=== PATIENT | female | born 1960 | race Caucasian/White ===

== ENCOUNTER → 2016-07-31 | Outpatient (CLI) | payer BC | END | disposition home or self-care (01) | LOC: C.PAPS 15:10 | PROVIDERS: ATTEND Obstetrics & Gynecology | DX: R87.612 Low grade squamous intraepithelial lesion on cytologic smear of cervix (LGSIL) (principal) ==

== ENCOUNTER → 2016-10-07 | Outpatient (CLI) | payer BC | END | disposition home or self-care (01) | LOC: C.PAPS 08:41 | PROVIDERS: ATTEND Obstetrics & Gynecology | DX: R87.612 Low grade squamous intraepithelial lesion on cytologic smear of cervix (LGSIL) (principal) ==

== ENCOUNTER → 2016-12-16 | Outpatient (CLI) | payer BC | END | disposition home or self-care (01) | LOC: C.PAPS 14:56 | PROVIDERS: ATTEND Obstetrics & Gynecology | DX: Z01.419 Encounter for gynecological examination (general) (routine) without abnormal findings (principal) ==

== ENCOUNTER → 2017-08-13 | Outpatient (CLI) | payer BC | END | disposition home or self-care (01) | LOC: C.PAPS 14:42 | PROVIDERS: ATTEND Obstetrics & Gynecology | DX: Z01.419 Encounter for gynecological examination (general) (routine) without abnormal findings (principal) ==

== ENCOUNTER 2023-10-24 21:28 | Observation (INO) ==
[2023-10-24 22:37] LABS: Basophils # (auto) 0.02 K/uL (0.00-0.20); Basophils % (auto) 0.2 %; Eosinophils # (auto) 0.06 K/uL (0.00-0.50); Eosinophils % (auto) 0.7 %; Hematocrit (blood only) 34.5 % (37.0-47.0); Hemoglobin 11.7 g/dl (12.0-16.0); Immature Granulocytes # (auto) 0.03 K/uL (0.01-0.20); Immature Granulocytes % (auto) 0.4 %; Lymphocytes # (auto) 1.33 K/uL (1.20-3.40); Lymphocytes % (auto) 16.2 %; Mean Corpuscular Hemoglobin 30.5 pg (25.0-34.0); Mean Corpuscular Hgb Conc 33.9 g/dL (32.0-36.0); Mean Corpuscular Volume 89.8 fL (80.0-100.0); Mean Platelet Volume 9.5 fL (9.4-12.4); Monocytes # (auto) 0.78 K/uL (0.11-0.59); Monocytes % (auto) 9.5 %; Neutrophils # (auto) 5.98 K/uL (1.40-6.50); Platelet Count 182 K/uL (130-400); RDW Coefficient of Variation 13.2 % (11.5-14.5); RDW Standard Deviation 43.8 fL (36.4-46.3); Red Blood Count 3.84 M/uL (4.20-5.40)
[2023-10-24 22:46] LABS: Alanine Aminotransferase 31 U/L (7-52); Albumin Globulin Ratio 1.4 (0.9-2); Albumin Level 3.7 gm/dl (3.4-5.0); Alkaline Phosphatase 52 U/L (34-104); Anion Gap 5 (3-11); Aspartate Aminotransferase 32 U/L (13-39); BUN Creatinine Ratio 14.9 (10-20); Bilirubin,Total 0.4 mg/dl (0.2-1.0); Blood Urea Nitrogen 7 mg/dl (6-23); Calcium 8.4 mg/dl (8.6-10.3); Carbon Dioxide 26 mmol/L (21-32); Chloride 100 mmol/L (98-107); Est GFR (African American) 122.7 ml/min; Est GFR (Non-African American) 105.9 ml/min; Globulin 2.7 gm/dl (2.5-4.0); Glucose 134 mg/dl (70-99(Fasting)); Potassium 3.9 mmol/L (3.5-5.1); Sodium 131 mmol/L (136-145); Total Protein 6.4 gm/dl (6.0-8.3)
[2023-10-24 22:54] LABS: D Dimer 1710 ug/L FEU (0-500)
[2023-10-24] MEDS: OPTIRAY 320 125ml IV ONE (23:13)
[2023-10-24 23:23] LABS: Troponin I High Sensitivity 4.3 pg/ml (0-14)
--- NOTE | 2023-10-24 23:27 | Emergency Department Note ---
Impression & Plan Acute dyspnea, Acute hypoxemic respiratory failure, Pleural effusion on right, Aspiration pneumonia ED Provider Note HISTORY OF PRESENT ILLNESS: Patient is a 62-year-old female presenting with shortness of breath. Patient reports that after waking up at 830 this morning she has had progressively worsening shortness of breath throughout the day today. She reports she feels like she cannot catch her breath. Patient just had a tummy tuck procedure performed at [facility] yesterday with a plastic surgeon. She states that as the day has progressed, she feels like she cannot catch her breath. Denies any chest pain or lightheadedness. Denies any DVT or PE history. Denies any anticoagulation use. Denies any nausea or vomiting. Denies any fevers. ROS: as above PHYSICAL EXAM: Constitutional: Patient appears in no acute distress. HENT: Head: Normocephalic and atraumatic. Eyes: EOMI, PERRL Mouth/Throat: Mucous membranes moist. Neck: Trachea midline. Neck supple. Cardiovascular: RRR, No murmurs, rubs or gallops. Intact distal pulses. Pulmonary/Chest: Patient is conversationally dyspneic. Breath sounds clear and equal bilaterally. Abdominal: Abdomen soft, no tenderness, rebound or guarding. JULIANN drains in place draining serosanguineous fluid. Musculoskeletal: No edema, tenderness or deformity noted. Skin: Warm and dry. No rash, erythema, pallor or cyanosis Psychiatric: Appropriate mood and affect for situation. Neurological: Alert and keenly responsive. CN II-XII grossly intact, moving all extremities equally and fully. MDM: - Vitals signs showed hypoxia. Patient placed on 2L NC with improvement in saturations. - History obtained via patient. History as above. - Chronic conditions affecting care: HTN; HLD - Differential diagnoses include, but are not limited to: Congestive heart failure; acute coronary syndrome; COPD/asthma exacerbation; pulmonary edema; pulmonary embolism; pneumonia; pneumothorax; viral syndrome - Order placed for continuous cardiac monitoring. At this time, monitor showed rate of 84 bpm with normal sinus rhythm, per my interpretation. - External medical records reviewed. - EKG interpreted by myself showed normal sinus rhythm. Rate 85 bpm. QT 354. No acute ischemic changes. - Laboratory workup interpreted by myself showed normal WBC; slight hyponatremia (Na 131); normal creatinine; elevated dimer (1710); normal BNP; normal troponin - CXR showed right effusion, per my interpretation. - Patient given 1g IV tylenol for headache in ER. - Given elevated dimer, CT PE obtained. CT PE showed dependent airspace opacities in right upper lobe, lingula and both lower lobes. No PE. Small bilateral pleural effusions - However, per my interpretation of the CT, it looks concerning for a right- sided aspiration pneumonia. Given patient's new oxygen requirement, will treat with IV zosyn. - Patient was transitioned from nasal cannula to high-flow nasal cannula for work of breathing. - Discussion was had with case mgr about patient's case and need for admission - Hospitalist consulted for admission - Patient admitted to [facility] for further evaluation and management. ASSESSMENT AND PLAN: Diagnosis: acute dyspnea; acute hypoxic respiratory failure; right-sided pleural effusion; aspiration pneumonia Plan: Admit Past Med/Surg History Problem List (Updated 10/25/23 @ 01:24 by Lisa Aponte MD) Aspiration pneumonia (Acute) Pleural effusion on right (Acute) Acute hypoxemic respiratory failure (Acute) Acute dyspnea (Acute) Social History Smoking Status: Never smoker Preferred Language: Greenlandic Feels Safe at Home: Yes Allergies Allergies Allergy/AdvReac Type Severity Reaction Status Date / Time No Known Allergies Allergy Unverified 10/25/23 01:02 Home Meds Home Medications Medication Instructions Recorded Confirmed cephalexin 500 mg capsule 500 mg PO QID 10/25/23 10/25/23 conj estrogen-medroxyprogesterone 1 tab PO DAILY 10/25/23 10/25/23 0.45 mg-1.5 mg tablet (Prempro) docusate sodium 100 mg capsule 100 mg PO HS PRN Constipation 10/25/23 10/25/23 (Col-Rite) duloxetine 60 mg capsule,delayed 60 mg PO DAILY 10/25/23 10/25/23 release meloxicam 7.5 mg tablet 7.5 mg PO .HOLD 10/25/23 10/25/23 oxycodone-acetaminophen 5 mg-325 1 tab PO Q4 PRN Pain 10/25/23 10/25/23 mg tablet pantoprazole 20 mg tablet,delayed 20 mg PO BID 10/25/23 10/25/23 release propranolol 80 mg capsule,24 80 mg PO DAILY 10/25/23 10/25/23 hr,extended release rizatriptan 10 mg disintegrating 10 mg PO DIRECTED PRN Migraine 10/25/23 10/25/23 tablet Headache rosuvastatin 10 mg tablet 10 mg PO DAILY 10/25/23 10/25/23 zolpidem 10 mg tablet 5 - 10 mg PO HS PRN Sleep 10/25/23 10/25/23 Results & Data (ED) Vital Signs Vital Signs - 24 hr 10/24/23 21:37 10/24/23 21:43 10/24/23 21:44 Temperature 36.6 C Temperature Source Oral Pulse Rate 83 Pulse Rate [Finger] Pulse Rate from SpO2 Sensor Pulse Rhythm Regular Pulse Strength Normal Respiratory Rate 22 Respiratory Effort / Characteristics Non-Labored Spontaneous Respiratory Depth Normal Respiratory Pattern Regular Blood Pressure 132/82 Blood Pressure Mean 98 Blood Pressure Position Sitting Pulse Oximetry 88 L 95 Oxygen Delivery Method Room Air Nasal Cannula Nasal Cannula Oxygen Flow Rate 2 2 Fraction of Inspired Oxygen Sepsis Recent Fever Within 48 Hours No Sepsis New/Unexplained Change in Mental Status N/A Sepsis Action Taken by Nursing No Action Required 10/24/23 21:44 10/24/23 21:57 10/24/23 22:03 Temperature Temperature Source Pulse Rate 86 81 Pulse Rate [Finger] Pulse Rate from SpO2 Sensor 87 81 Pulse Rhythm Pulse Strength Respiratory Rate 24 20 Respiratory Effort / Characteristics Non-Labored Respiratory Depth Normal Respiratory Pattern Blood Pressure Blood Pressure Mean Blood Pressure Position Pulse Oximetry 95 96 Oxygen Delivery Method Oxygen Flow Rate Fraction of Inspired Oxygen Sepsis Recent Fever Within 48 Hours Sepsis New/Unexplained Change in Mental Status Sepsis Action Taken by Nursing 10/24/23 22:28 10/24/23 22:36 10/24/23 22:42 Temperature Temperature Source Pulse Rate 75 76 Pulse Rate [Finger] Pulse Rate from SpO2 Sensor 75 76 Pulse Rhythm Pulse Strength Respiratory Rate 17 16 Respiratory Effort / Characteristics Respiratory Depth Respiratory Pattern Blood Pressure 123/90 Blood Pressure Mean 101 Blood Pressure Position Pulse Oximetry 96 96 Oxygen Delivery Method Oxygen Flow Rate Fraction of Inspired Oxygen Sepsis Recent Fever Within 48 Hours Sepsis New/Unexplained Change in Mental Status Sepsis Action Taken by Nursing 10/24/23 23:27 10/24/23 23:28 10/25/23 00:12 Temperature Temperature Source Pulse Rate Pulse Rate [Finger] 88 Pulse Rate from SpO2 Sensor Pulse Rhythm Pulse Strength Respiratory Rate 28 H Respiratory Effort / Characteristics Non-Labored Spontaneous Short of Breath Respiratory Depth Normal Respiratory Pattern Blood Pressure Blood Pressure Mean Blood Pressure Position Pulse Oximetry 96 98 Oxygen Delivery Method High Flow Nasal Cannula Oxygen Flow Rate 25 Fraction of Inspired Oxygen 30 Sepsis Recent Fever Within 48 Hours Sepsis New/Unexplained Change in Mental Status Sepsis Action Taken by Nursing Laboratory Data 10/24/23 22:11 10/24/23 22:11 Lab Results 10/24/23 10/24/23 10/24/23 Range/Units 22:11 22:14 23:29 WBC 8.20 (4.8-10.8) K/ul RBC 3.84 L (4.20-5.40) M/uL Hgb 11.7 L (12.0-16.0) g/dl Hct 34.5 L (37.0-47.0) % MCV 89.8 (80.0-100.0) fL MCH 30.5 (25.0-34.0) pg MCHC 33.9 (32.0-36.0) g/dL RDW Std Deviation 43.8 (36.4-46.3) fL RDW Coeff of Michelle 13.2 (11.5-14.5) % Plt Count 182 (130-400) K/uL MPV 9.5 (9.4-12.4) fL Immature Gran % (Auto) 0.4 % Neut % (Auto) 73.0 % Lymph % (Auto) 16.2 % [place] % (Auto) 9.5 % Eos % (Auto) 0.7 % Baso % (Auto) 0.2 % Neut # (Auto) 5.98 (1.40-6.50) K/uL Lymph # (Auto) 1.33 (1.20-3.40) K/uL [place] # (Auto) 0.78 H (0.11-0.59) K/uL Eos # (Auto) 0.06 (0.00-0.50) K/uL Baso # (Auto) 0.02 (0.00-0.20) K/uL Immature Gran # (Auto) 0.03 (0.01-0.20) K/uL D-Dimer 1710 H* (0-500) ug/L FEU Sodium 131 L (136-145) mmol/L Potassium 3.9 (3.5-5.1) mmol/L Chloride 100 (98-107) mmol/L Carbon Dioxide 26 (21-32) mmol/L Anion Gap 5 (3-11) BUN 7 (6-23) mg/dl Creatinine 0.47 L (0.6-1.2) mg/dl Est Cr Clr Drug Dosing Not Reportable Est GFR ( Amer) 122.7 ml/min Est GFR (Non-Af Amer) 105.9 ml/min BUN/Creatinine Ratio 14.9 (10-20) Glucose 134 H (70-99(Fasting)) mg/dl Calcium 8.4 L (8.6-10.3) mg/dl Magnesium 1.8 (1.7-2.4) mg/dl Total Bilirubin 0.4 (0.2-1.0) mg/dl AST 32 (13-39) U/L ALT 31 (7-52) U/L Alkaline Phosphatase 52 (34-104) U/L Troponin I High Sens 4.3 (0-14) pg/ml B-Natriuretic Peptide 32 (0-100) pg/ml Total Protein 6.4 (6.0-8.3) gm/dl Albumin 3.7 (3.4-5.0) gm/dl Globulin 2.7 (2.5-4.0) gm/dl Albumin/Globulin Ratio 1.4 (0.9-2) Urine Color See Comment Urine Appearance Clear (Clear) Urine pH Not Reportable Ur Specific [place] 1.040 H (1.000-1.030) Urine Protein Not Reportable Urine Glucose (UA) Not Reportable Urine Ketones Not Reportable Urine Blood Not Reportable Urine Nitrite Not Reportable Urine Bilirubin Not Reportable Urine Urobilinogen Not Reportable Ur Leukocyte Esterase Not Reportable Urine RBC 0-2 (0-2) /hpf Urine WBC 0-5 (0-5) /hpf Ur Epithelial Cells >20 H (0-2) /hpf Urine Bacteria None Seen (None Seen) Hyaline Casts Present A (None Presnt) /lpf Administered Medications Discontinued Medications Ioversol (Optiray 320 125ml) 120 ml IV ONCE ONE Stop: 10/24/23 23:14 Last Admin: 10/24/23 23:13 Dose: 120 ml Documented By: PLW Imaging Data Radiologist's Impression: Chest CTA 10/24/23 22:56 Exam(s): CTA CHEST EXAM: CT Angiography Chest With Intravenous Contrast CLINICAL HISTORY: Reason for exam: PE; hypoxia; recent surgery. TECHNIQUE: Axial computed tomographic angiography images of the chest with intravenous contrast. CTDI is 28.14 mGy and DLP is 763.92 mGy-cm. Automated exposure control was utilized for the study. A dose lowering technique was utilized adhering to the principles of ALARA. MIP reconstructed images were created and reviewed. COMPARISON: No relevant prior studies available. FINDINGS: Pulmonary arteries: Adequate pulmonary artery opacification. No pulmonary embolism. Aorta: No acute findings. No aortic aneurysm or dissection. Lungs: Dependent airspace opacities right upper lobe, lingula, and both lower lobes. Pleural space: Small right and trace left pleural effusions. No pneumothorax. Heart: Unremarkable. No cardiomegaly, RV strain, pericardial effusion, or significant coronary artery atherosclerosis. Bones/joints: No acute fracture or dislocation. Soft tissues: Subcutaneous emphysema left posterior body wall, presumably on the basis of resolving postoperative change. Lymph nodes: Unremarkable. No enlarged lymph nodes. IMPRESSION: 1. Dependent airspace opacities right upper lobe, lingula, and both lower lobes, most likely atelectasis. 2. Small right and trace left pleural effusions. 3. No evidence of pulmonary embolism. 4. Subcutaneous emphysema left posterior body wall, presumably on the basis of resolving postoperative change. Correlate with type and timing of surgery. Electronically signed by: Blaine Mcintosh M.D. 10/25/23 00:47 AM Discharge Plan Visit Data Chief Complaint: Shortness of Breath/Dyspnea Stated Complaint: SOB ED Provider: Lisa Aponte Discharge Problem: Acute dyspnea, Acute hypoxemic respiratory failure, Pleural effusion on right, Aspiration pneumonia Forms Stand Alone Forms: [facility] [employer] Prescriptions Prescriptions: No Action pantoprazole 20 mg tablet,delayed release (DR/EC) 20 mg PO BID meloxicam 7.5 mg tablet 7.5 mg PO .HOLD oxycodone-acetaminophen 5-325 mg tablet 1 tab PO Q4 PRN (Reason: Pain) rizatriptan 10 mg tablet,disintegrating 10 mg PO DIRECTED PRN (Reason: Migraine Headache) cephalexin 500 mg capsule 500 mg PO QID propranolol 80 mg capsule,extended release 24hr 80 mg PO DAILY docusate sodium [Col-Rite] 100 mg capsule 100 mg PO HS PRN (Reason: Constipation) zolpidem 10 mg tablet 5 - 10 mg PO HS PRN (Reason: Sleep) Prempro 0.45-1.5 mg Tablet 1 tab PO DAILY rosuvastatin 10 mg tablet 10 mg PO DAILY duloxetine 60 mg capsule,delayed release(DR/EC) 60 mg PO DAILY Referrals Referrals: PCP,NO [Primary Care Provider] -
[2023-10-24 23:57] LABS: Magnesium 1.8 mg/dl (1.7-2.4)
[2023-10-24 23:58] LABS: Appearance Urine Clear (Clear)
[2023-10-25 00:05] LABS: Epithelial Cell Urine >20 /hpf (0-2)
[2023-10-25 00:07] LABS: RBC Urine 0-2 /hpf (0-2); WBC Urine 0-5 /hpf (0-5)
[2023-10-25 00:08] LABS: Bacteria Urine None Seen (None Seen)
[2023-10-25 00:09] LABS: Hyaline Casts Urine Present /lpf (None Presnt)
--- NOTE | 2023-10-25 00:48 | CT Scan Report ---
Exam(s): CTA CHEST EXAM: CT Angiography Chest With Intravenous Contrast CLINICAL HISTORY: Reason for exam: PE; hypoxia; recent surgery. TECHNIQUE: Axial computed tomographic angiography images of the chest with intravenous contrast. CTDI is 28.14 mGy and DLP is 763.92 mGy-cm. Automated exposure control was utilized for the study. A dose lowering technique was utilized adhering to the principles of ALARA. MIP reconstructed images were created and reviewed. COMPARISON: No relevant prior studies available. FINDINGS: Pulmonary arteries: Adequate pulmonary artery opacification. No pulmonary embolism. Aorta: No acute findings. No aortic aneurysm or dissection. Lungs: Dependent airspace opacities right upper lobe, lingula, and both lower lobes. Pleural space: Small right and trace left pleural effusions. No pneumothorax. Heart: Unremarkable. No cardiomegaly, RV strain, pericardial effusion, or significant coronary artery atherosclerosis. Bones/joints: No acute fracture or dislocation. Soft tissues: Subcutaneous emphysema left posterior body wall, presumably on the basis of resolving postoperative change. Lymph nodes: Unremarkable. No enlarged lymph nodes. IMPRESSION: 1. Dependent airspace opacities right upper lobe, lingula, and both lower lobes, most likely atelectasis. 2. Small right and trace left pleural effusions. 3. No evidence of pulmonary embolism. 4. Subcutaneous emphysema left posterior body wall, presumably on the basis of resolving postoperative change. Correlate with type and timing of surgery. Electronically signed by: Blaine Mcintosh M.D. 10/25/23 00:47 AM
[2023-10-25] MEDS: ACETAMINOPHEN 1,000 MG/100 ML VIAL IV STA (01:31)
--- NOTE | 2023-10-25 01:46 | History & Physical Report ---
Date of Service October 25, 2023 Assessment & Plan (1) Acute hypoxemic respiratory failure: (2) Aspiration pneumonia of both lower lobes: (3) Pleural effusion on right: (4) Anxiety and depression: (5) Hyperlipidemia: (6) Migraine headache: (7) GERD (gastroesophageal reflux disease): (8) Insomnia: (9) Postmenopausal state: (10) Status post abdominoplasty: Plan Acute respiratory failure with hypoxia/aspiration pneumonia/parapneumonic effusion on right- Upon arrival to the ED, patient had a pulse ox of 88% on room air, and was not comfortable until placed on high flow oxygen 30% MRSA swab Zosyn 4.5 g IV every 8 hours Duonebs every 4 hours while awake and every 2 hours when necessary. Guaifenesin extended release 600 mg p.o. twice daily Pneumonia likely secondary to combination of aspiration, as she was told that she was a difficult intubation, and atelectasis Taper oxygen downward as symptomatology improves Status post abdominoplasty- Continue lidocaine pump infusion Acetaminophen 650 mg by mouth every 6 hours as needed for mild pain or fever Percocet 5/325, 1 every 4 hours as needed for moderate pain Dilaudid 0.25 mg IV every 3 hours as needed for severe pain Continue with abdominal binder GERD- Continue pantoprazole, increased to 40 mg p.o. twice daily Migraine headache/anxiety/insomnia- Continue duloxetine, propranolol, rizatriptan, and zolpidem History of Present Illness Chief Complaint: The patient presents to the emergency department with complaint of shortness of breath that began about 8:30 in the morning, and continue to worsen as the day progressed. Primary Care Provider: NO PCP The patient is a 62-year-old female with a past medical history including hyperlipidemia, insomnia, migraine headache, GERD, anxiety with depression and postmenopausal state. She underwent a tummy tuck surgery at [facility] on the morning of October 22, and was discharged to home on oral Percocet and a lid ocaine pump infusion. She awoke the following morning, yesterday morning with shortness of breath at around 8:30 AM, which has continued to worsen as the day progressed. She does report the expected abdominal discomfort associated with a tummy tuck, and has had some difficulty breathing deep breaths associated with this abdominal pain. She presents to the ED this evening at [facility] for a ssessment. Allergies Allergy/AdvReac Type Severity Reaction Status Date / Time No Known Allergies Allergy Unverified 10/25/23 01:02 Home Medications Medication Instructions Recorded Confirmed Type cephalexin 500 mg capsule 500 mg PO QID 10/25/23 10/25/23 History conj estrogen-medroxyprogesterone 1 tab PO DAILY 10/25/23 10/25/23 History 0.45 mg-1.5 mg tablet (Prempro) docusate sodium 100 mg capsule 100 mg PO HS PRN Constipation 10/25/23 10/25/23 History (Col-Rite) duloxetine 60 mg capsule,delayed 60 mg PO DAILY 10/25/23 10/25/23 History release meloxicam 7.5 mg tablet 7.5 mg PO .HOLD 10/25/23 10/25/23 History oxycodone-acetaminophen 5 mg-325 1 tab PO Q4 PRN Pain 10/25/23 10/25/23 History mg tablet pantoprazole 20 mg tablet,delayed 20 mg PO BID 10/25/23 10/25/23 History release propranolol 80 mg capsule,24 80 mg PO DAILY 10/25/23 10/25/23 History hr,extended release rizatriptan 10 mg disintegrating 10 mg PO DIRECTED PRN Migraine 10/25/23 10/25/23 History tablet Headache rosuvastatin 10 mg tablet 10 mg PO DAILY 10/25/23 10/25/23 History zolpidem 10 mg tablet 5 - 10 mg PO HS PRN Sleep 10/25/23 10/25/23 History Past Med/Surg History Problem List (Updated 10/25/23 @ 04:52 by Usman Allen MD) Status post abdominoplasty Aspiration pneumonia of both lower lobes Aspiration pneumonia (Acute) Pleural effusion on right (Acute) Acute hypoxemic respiratory failure (Acute) Acute dyspnea (Acute) Medical History (Updated 10/25/23 @ 04:52 by Usman Allen MD) Postmenopausal state Insomnia GERD (gastroesophageal reflux disease) Migraine headache Hyperlipidemia Anxiety and depression Social History Smoking Status: Never smoker Hx Alcohol Use: No Hx Substance Use: No Preferred Language: Ukrainian Communication Ability: Effective 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 Beliefs That Will Affect Care: None Current Living Situation: Alone Other Information That Helps Us Care for You: Yes (Daughter is an ED PA-C) Feels Safe at Home: Yes Safety Concerns: Feels Safe At This Time Assistive Devices: None Review of Systems Review of Systems: The patient denies chest pain, palpitations, lower extremity swelling, sore throat, fevers, chills, sweats, nausea, vomiting, diarrhea , constipation, abdominal pain, pelvic pain, blood in urine or stool, dysuria, urinary frequency or urgency, lightheadedness, dizziness, headache, memory loss, loss of consciousness, rash, abnormal bruising or bleeding, imbalance, focal or generalized weakness, numbness or tingling in arms or legs, generalized arthralgias or myalgias, back or neck pain, or night sweats. The review of systems is otherwise negative other than for that already noted above, and at least 10 systems have been reviewed. Physical Exam Physical Exam: The patient is awake, alert and oriented 3, well developed and well nourished, normocephalic and atraumatic, lying in bed and in no acute distress. HEENT--PERRL, EOMI, mucous membranes and oropharynx normal Neck--supple. No JVD. No bruits. Thyroid normal, trachea midline, no adenopathy. Heart--normal S1 and S2. No murmurs, rubs or gallops. Lungs--coarse breath sounds at the bases bilaterally, right worse than left. No respiratory distress, no accessory muscle use. Abdomen--abdominal binder in place, with lidocaine pump Extremities--no cyanosis or clubbing. No edema. Dermatologic--normal skin turgor, normal color, no abnormal lymph nodes, no rash. Neurologic--cranial nerves II through XII grossly intact. Rheumatologic--normal range of motion. Psychiatric--normal affect. Results & Data Results & Data Vital Signs (Past 12 Hours) Vital Signs Temp Pulse Pulse Resp BP Pulse Ox O2 Del Method 10/25/23 00:12 88 28 H 98 High Flow Nasal Cannula 10/24/23 23:27 96 10/24/23 22:42 76 16 96 10/24/23 22:36 75 17 96 10/24/23 22:28 123/90 10/24/23 22:03 81 20 96 10/24/23 21:57 86 24 95 10/24/23 21:44 95 Nasal Cannula 10/24/23 21:43 Nasal Cannula 10/24/23 21:37 36.6 C 83 22 132/82 88 L Room Air O2 Flow Rate FiO2 10/25/23 00:12 25 30 10/24/23 23:27 10/24/23 22:42 10/24/23 22:36 10/24/23 22:28 10/24/23 22:03 10/24/23 21:57 10/24/23 21:44 2 10/24/23 21:43 2 10/24/23 21:37 Laboratory Results Laboratory Results WBC 8.20 K/ul (4.8-10.8) 10/24/23 22:11 RBC 3.84 M/uL (4.20-5.40) L 10/24/23 22:11 Hgb 11.7 g/dl (12.0-16.0) L 10/24/23 22:11 Hct 34.5 % (37.0-47.0) L 10/24/23 22:11 MCV 89.8 fL (80.0-100.0) 10/24/23 22:11 MCH 30.5 pg (25.0-34.0) 10/24/23 22:11 MCHC 33.9 g/dL (32.0-36.0) 10/24/23 22:11 RDW Std Deviation 43.8 fL (36.4-46.3) 10/24/23 22:11 RDW Coeff of Michelle 13.2 % (11.5-14.5) 10/24/23 22:11 Plt Count 182 K/uL (130-400) 10/24/23 22:11 MPV 9.5 fL (9.4-12.4) 10/24/23 22:11 Immature Gran % (Auto) 0.4 % 10/24/23 22:11 Neut % (Auto) 73.0 % 10/24/23 22:11 Lymph % (Auto) 16.2 % 10/24/23 22:11 [place] % (Auto) 9.5 % 10/24/23 22:11 Eos % (Auto) 0.7 % 10/24/23 22:11 Baso % (Auto) 0.2 % 10/24/23 22:11 Neut # (Auto) 5.98 K/uL (1.40-6.50) 10/24/23 22:11 Lymph # (Auto) 1.33 K/uL (1.20-3.40) 10/24/23 22:11 [place] # (Auto) 0.78 K/uL (0.11-0.59) H 10/24/23 22:11 Eos # (Auto) 0.06 K/uL (0.00-0.50) 10/24/23 22:11 Baso # (Auto) 0.02 K/uL (0.00-0.20) 10/24/23 22:11 Immature Gran # (Auto) 0.03 K/uL (0.01-0.20) 10/24/23 22:11 D-Dimer 1710 ug/L FEU (0-500) H* 10/24/23 22:14 Sodium 131 mmol/L (136-145) L 10/24/23 22:11 Potassium 3.9 mmol/L (3.5-5.1) 10/24/23 22:11 Chloride 100 mmol/L (98-107) 10/24/23 22:11 Carbon Dioxide 26 mmol/L (21-32) 10/24/23 22:11 Anion Gap 5 (3-11) 10/24/23 22:11 BUN 7 mg/dl (6-23) 10/24/23 22:11 Creatinine 0.47 mg/dl (0.6-1.2) L 10/24/23 22:11 Est Cr Clr Drug Dosing Not Reportable 10/24/23 22:11 Est GFR ( Amer) 122.7 ml/min 10/24/23 22:11 Est GFR (Non-Af Amer) 105.9 ml/min 10/24/23 22:11 BUN/Creatinine Ratio 14.9 (10-20) 10/24/23 22:11 Glucose 134 mg/dl (70-99(Fasting)) H 10/24/23 22:11 Calcium 8.4 mg/dl (8.6-10.3) L 10/24/23 22:11 Magnesium 1.8 mg/dl (1.7-2.4) 10/24/23 22:11 Total Bilirubin 0.4 mg/dl (0.2-1.0) 10/24/23 22:11 AST 32 U/L (13-39) 10/24/23 22:11 ALT 31 U/L (7-52) 10/24/23 22:11 Alkaline Phosphatase 52 U/L (34-104) 10/24/23 22:11 Troponin I High Sens 4.3 pg/ml (0-14) 10/24/23 22:11 B-Natriuretic Peptide 32 pg/ml (0-100) 10/24/23 22:11 Total Protein 6.4 gm/dl (6.0-8.3) 10/24/23 22:11 Albumin 3.7 gm/dl (3.4-5.0) 10/24/23 22:11 Globulin 2.7 gm/dl (2.5-4.0) 10/24/23 22:11 Albumin/Globulin Ratio 1.4 (0.9-2) 10/24/23 22:11 Urine Color See Comment 10/24/23 23:29 Urine Appearance Clear (Clear) 10/24/23 23:29 Urine pH Not Reportable 10/24/23 23:29 Ur Specific [employer] 1.040 (1.000-1.030) H 10/24/23 23:29 Urine Protein Not Reportable 10/24/23 23:29 Urine Glucose (UA) Not Reportable 10/24/23 23:29 Urine Ketones Not Reportable 10/24/23 23:29 Urine Blood Not Reportable 10/24/23 23:29 Urine Nitrite Not Reportable 10/24/23 23:29 Urine Bilirubin Not Reportable 10/24/23 23:29 Urine Urobilinogen Not Reportable 10/24/23 23:29 Ur Leukocyte Esterase Not Reportable 10/24/23 23:29 Urine RBC 0-2 /hpf (0-2) 10/24/23 23:29 Urine WBC 0-5 /hpf (0-5) 10/24/23 23:29 Ur Epithelial Cells >20 /hpf (0-2) H 10/24/23 23:29 Urine Bacteria None Seen (None Seen) 10/24/23 23:29 Hyaline Casts Present /lpf (None Presnt) A 10/24/23 23:29 Nasal Screen MRSA (PCR) Negative (Negative) 10/25/23 02:20 Impressions Chest CTA 10/24/23 22:56 Exam(s): CTA CHEST EXAM: CT Angiography Chest With Intravenous Contrast CLINICAL HISTORY: Reason for exam: PE; hypoxia; recent surgery. TECHNIQUE: Axial computed tomographic angiography images of the chest with intravenous contrast. CTDI is 28.14 mGy and DLP is 763.92 mGy-cm. Automated exposure control was utilized for the study. A dose lowering technique was utilized adhering to the principles of ALARA. MIP reconstructed images were created and reviewed. COMPARISON: No relevant prior studies available. FINDINGS: Pulmonary arteries: Adequate pulmonary artery opacification. No pulmonary embolism. Aorta: No acute findings. No aortic aneurysm or dissection. Lungs: Dependent airspace opacities right upper lobe, lingula, and both lower lobes. Pleural space: Small right and trace left pleural effusions. No pneumothorax. Heart: Unremarkable. No cardiomegaly, RV strain, pericardial effusion, or significant coronary artery atherosclerosis. Bones/joints: No acute fracture or dislocation. Soft tissues: Subcutaneous emphysema left posterior body wall, presumably on the basis of resolving postoperative change. Lymph nodes: Unremarkable. No enlarged lymph nodes. IMPRESSION: 1. Dependent airspace opacities right upper lobe, lingula, and both lower lobes, most likely atelectasis. 2. Small right and trace left pleural effusions. 3. No evidence of pulmonary embolism. 4. Subcutaneous emphysema left posterior body wall, presumably on the basis of resolving postoperative change. Correlate with type and timing of surgery. Electronically signed by: Blaine Mcintosh M.D. 10/25/23 00:47 AM Code Status & VTE Plan Code Status Full code VTE Prophylaxis Plan VTE Prophylaxis will be ordered: Yes PG Care Time/CCT Total # of Minutes Spent Total Time Spent with Patient: Total time spent is greater than 50% in coordination of care (as documented) at patient's floor/unit and/or counseling patient: Coding Level of Care Code 54296 INT INP/OBS CARE 3/75MIN Diagnoses Acute hypoxemic respiratory failure J96.01 Aspiration pneumonia of both lower lobes J69.0 Pleural effusion on right J90 Anxiety and depression F41.9; F32.A Hyperlipidemia E78.5 Migraine headache G43.909 GERD (gastroesophageal reflux disease) K21.9 Insomnia G47.00 Postmenopausal state Z78.0 Status post abdominoplasty Z98.890
[2023-10-25] MEDS: PIPERACILLIN/TAZOBACTAM 4.5 GM/100 ML BAG IV ONE (01:47)
[2023-10-25] MEDS: NSS + 20MEQ KCL 20 MEQ/1,000 ML BAG IV STA (02:17)
[2023-10-25] MEDS ORDERED: DOCUSATE SODIUM 100 MG CAP PO PRN (02:24)
[2023-10-25] MEDS ORDERED: ONDANSETRON INJ 2 MG/ML 2 ML VIAL IV PRN (02:24)
[2023-10-25] MEDS ORDERED: RIZATRIPTAN BENZOATE MLT 10 MG TAB PO PRN (02:36)
[2023-10-25] MEDS: oxyCODONE/ACETAMINOPHEN 5mg/325mg TAB PO PRN (02:40)
[2023-10-25 04:50] LABS: Basophils # (auto) 0.02 K/uL (0.00-0.20); Basophils % (auto) 0.2 %; Eosinophils # (auto) 0.07 K/uL (0.00-0.50); Eosinophils % (auto) 0.9 %; Hematocrit (blood only) 34.6 % (37.0-47.0); Hemoglobin 11.3 g/dl (12.0-16.0); Immature Granulocytes # (auto) 0.02 K/uL (0.01-0.20); Immature Granulocytes % (auto) 0.2 %; Lymphocytes # (auto) 1.41 K/uL (1.20-3.40); Lymphocytes % (auto) 17.6 %; Mean Corpuscular Hemoglobin 29.6 pg (25.0-34.0); Mean Corpuscular Hgb Conc 32.7 g/dL (32.0-36.0); Mean Corpuscular Volume 90.6 fL (80.0-100.0); Mean Platelet Volume 9.6 fL (9.4-12.4); Monocytes # (auto) 0.82 K/uL (0.11-0.59); Monocytes % (auto) 10.2 %; Neutrophils # (auto) 5.69 K/uL (1.40-6.50); Neutrophils % (auto) 70.9 %; Platelet Count 188 K/uL (130-400); RDW Coefficient of Variation 13.3 % (11.5-14.5); RDW Standard Deviation 43.4 fL (36.4-46.3); Red Blood Count 3.82 M/uL (4.20-5.40); White Blood Count 8.03 K/ul (4.8-10.8)
[2023-10-25 05:06] LABS: Albumin Level 3.7 gm/dl (3.4-5.0); BUN Creatinine Ratio 10.9 (10-20); Calcium 8.5 mg/dl (8.6-10.3); Creatinine Clr Calc Pharmacy 87.3 ml/min; Est GFR (African American) 110.8 ml/min; Est GFR (Non-African American) 95.6 ml/min; Magnesium 1.9 mg/dl (1.7-2.4); Phosphorus 2.1 mg/dl (2.5-4.9)
[2023-10-25] MEDS: ALBUT/IPRATROP 3MG/0.5MG NEB 3 ML VIAL NEB SCH (06:48)
--- NOTE | 2023-10-25 08:05 | XRay Report ---
XR chest 1V portable CLINICAL HISTORY: Dyspnea TECHNIQUE: Single frontal radiograph of the chest was obtained. Comparison: None available at the time of this dictation. FINDINGS: No lines and tubes are seen. The cardiomediastinal silhouette is normal. Lungs are underinflated but clear. No evidence of pleural effusion or pneumothorax. IMPRESSION: No acute abnormalities and in particular no radiographic evidence of pneumonia. ACT 112: Negative or not required by law. Electronically signed by: Abdiel Andrade M.D. 10/25/2023 8:03 AM
[2023-10-25] MEDS: PIPERACILLIN/TAZOBACTAM 4.5 GM in DEXTROSE 5% MINI-B 100 ML IV SCH (08:43)
[2023-10-25] MEDS: DULoxetine HCL 60 MG CAP PO SCH (08:43)
[2023-10-25] MEDS: PROPRANOLOL HCL LA 80 MG CAPCR PO SCH (08:43)
[2023-10-25] MEDS: guaiFENesin 600 MG TABCR PO SCH (08:44)
[2023-10-25] MEDS: ROSUVASTATIN CALCIUM 10 MG TAB PO SCH (08:44)
[2023-10-25] MEDS ORDERED: PANTOprazole 40 MG TAB PO SCH (09:00)
--- NOTE | 2023-10-25 10:38 | Pulmonary Consultation ---
Date of Consultation October 25, 2023 Assessment & Plan (1) Acute hypoxemic respiratory failure: (2) Pleural effusion on right: (3) SHAYE (obstructive sleep apnea): (4) Asthma: Plan CT chest 10/24/2023 personally reviewed:Small right-sided pleural effusion Dependent atelectasis bilateral lower lobes Insignificant mediastinal lymphadenopathy -- Acute respiratory failure with hypoxia Multifactorial BNP 32 Nasal MRSA negative, procalcitonin 0.06 Dependent atelectasis bilateral lower lobes likely causing VQ mismatch Patient also had recent liposuction done which is associated with fat embolization. Fat emboli usually are difficult to find on CTA of the chest unless they are massive. --Intermittent asthma Only albuterol at home Does not seem to be in exacerbation -- SHAYE Mild, last sleep study was approximately 10 years ago Has gained weight since then Recommend outpatient polysomnography Plan: Okay to discontinue antibiotics as I do not see any clear signs of pneumonia given the negative procalcitonin. There is likely dependent atelectasis, continue with incentive spirometry. Patient was supposed to take Keflex for 14 days as per the recommendation of the surgeon who did the liposuction. Okay to resume that Titrated off oxygen gradually Please note the above document was generated using voice recognition software. It may contain grammatical, syntax or spelling errors.Any formal questions or concerns about the content, text or information contained within the body of this dictation should be directly addressed to the provider for clarification. History of Present Illness Attending Physician: Yen Chou MD History of Present Illness 62-year-old female presents to the hospital for shortness of breath Past medical history: Asthma, GERD, migraine, dyslipidemia Pulmonary consulted for hypoxia Patient recently had liposuction and along with shiraz lennon on 10/23/2023 Yesterday's when she started to complain of worsening shortness of breath. When she came to the ER her saturation was 88% on room air At the time of examination today, she was not in respiratory distress. She was saturating 96% on 2 L nasal cannula but I went down to 1 L She does complain of abdominal discomfort and it hurts her belly whenever she takes a deep breath in. She has been using incentive spirometry. No recent travel history Denies any fever or chills. Denies any chest pain No headache, no blurry vision No dysuria, or diarrhea Social history: Used to socially smoke in [employer] Allergies Allergy/AdvReac Type Severity Reaction Status Date / Time No Known Allergies Allergy Unverified 10/25/23 01:02 Home Medications Medication Instructions Recorded Confirmed Type cephalexin 500 mg capsule 500 mg PO QID 10/25/23 10/25/23 History conj estrogen-medroxyprogesterone 1 tab PO DAILY 10/25/23 10/25/23 History 0.45 mg-1.5 mg tablet (Prempro) docusate sodium 100 mg capsule 100 mg PO HS PRN Constipation 10/25/23 10/25/23 History (Col-Rite) duloxetine 60 mg capsule,delayed 60 mg PO DAILY 10/25/23 10/25/23 History release meloxicam 7.5 mg tablet 7.5 mg PO .HOLD 10/25/23 10/25/23 History oxycodone-acetaminophen 5 mg-325 1 tab PO Q4 PRN Pain 10/25/23 10/25/23 History mg tablet pantoprazole 20 mg tablet,delayed 20 mg PO BID 10/25/23 10/25/23 History release propranolol 80 mg capsule,24 80 mg PO DAILY 10/25/23 10/25/23 History hr,extended release rizatriptan 10 mg disintegrating 10 mg PO DIRECTED PRN Migraine 10/25/23 10/25/23 History tablet Headache rosuvastatin 10 mg tablet 10 mg PO DAILY 10/25/23 10/25/23 History zolpidem 10 mg tablet 5 - 10 mg PO HS PRN Sleep 10/25/23 10/25/23 History Patient History Medical History (Updated 10/25/23 @ 11:33 by Kym Vega MD, 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 Beliefs That Will Affect Care: None Current Living Situation: Alone Other Information That Helps Us Care for You: Yes (Daughter is an ED PA-C) Feels Safe at Home: Yes Safety Concerns: Feels Safe At This Time Assistive Devices: None Review of Systems Review of Systems: All systems reviewed & are unremarkable except as noted in HPI & below Physical Exam Physical Exam: Constitutional: No acute distress HEENT: EOMI, PERRLA Respiratory system: Decreased air entry bilaterally, no wheeze, no rhonchi, positive crackles bilateral lower lobes CVS: S1-S2 positive, no murmurs or gallops Abdomen: Soft, nontender, nondistended, positive bowel sounds x4, abdominal bandage in place with JULIANN drain Extremities: +2 pulses bilaterally radialis/ dorsalis pedis, no cyanosis, no edema Neuro: Awake alert oriented x3 Psych: Normal mood and affect G/U: No [place] Skin: no rashes, warm and dry Lymphatic: no cervical or axillary lymphadenopathy Results & Data Results & Data Vital Signs (Past 12 Hours) Vital Signs Pulse Pulse Resp BP Pulse Ox Pulse Ox O2 Del Method 10/25/23 07:20 73 10/25/23 06:49 83 18 97 High Flow Nasal Cannula 10/25/23 06:03 69 14 94 10/25/23 06:00 148/77 H 10/25/23 05:39 71 16 95 10/25/23 05:30 74 15 95 10/25/23 05:24 73 15 95 10/25/23 04:48 96 10/25/23 04:24 68 17 10/25/23 04:15 80 21 10/25/23 04:03 74 16 97 10/25/23 03:51 69 19 97 10/25/23 03:48 72 20 98 High Flow Nasal Cannula 10/25/23 03:42 70 16 97 10/25/23 03:29 72 10/25/23 03:27 71 17 98 10/25/23 03:26 High Flow Nasal Cannula 10/25/23 03:18 High Flow Nasal Cannula 10/25/23 03:16 95 10/25/23 03:15 70 17 98 10/25/23 03:03 72 20 97 10/25/23 02:27 74 19 98 10/25/23 02:15 70 22 98 10/25/23 02:00 162/85 H 10/25/23 01:57 85 24 97 10/25/23 01:30 72 18 10/25/23 01:21 74 23 10/25/23 00:51 76 24 96 10/25/23 00:48 80 20 10/25/23 00:24 80 19 95 10/25/23 00:12 79 20 95 10/25/23 00:12 88 28 H 98 High Flow Nasal Cannula 10/25/23 00:06 20 96 10/24/23 23:45 87 21 94 10/24/23 23:39 87 21 94 High Flow Nasal Cannula 10/24/23 23:27 96 10/24/23 22:42 76 16 96 10/24/23 22:36 75 17 96 O2 Flow Rate FiO2 10/25/23 07:20 10/25/23 06:49 25 30 10/25/23 06:03 10/25/23 06:00 10/25/23 05:39 10/25/23 05:30 10/25/23 05:24 10/25/23 04:48 10/25/23 04:24 10/25/23 04:15 10/25/23 04:03 10/25/23 03:51 10/25/23 03:48 25 30 10/25/23 03:42 10/25/23 03:29 10/25/23 03:27 10/25/23 03:26 10/25/23 03:18 10/25/23 03:16 10/25/23 03:15 10/25/23 03:03 10/25/23 02:27 10/25/23 02:15 10/25/23 02:00 10/25/23 01:57 10/25/23 01:30 10/25/23 01:21 10/25/23 00:51 10/25/23 00:48 10/25/23 00:24 10/25/23 00:12 10/25/23 00:12 25 30 10/25/23 00:06 10/24/23 23:45 10/24/23 23:39 10/24/23 23:27 10/24/23 22:42 10/24/23 22:36 PG Care Time/CCT Total # of Minutes Spent Total Time Spent with Patient: Total time spent is greater than 50% in coordination of care (as documented) at patient's floor/unit and/or counseling patient: Coding Level of Care Code 69500 INT INP/OBS CARE 3/75MIN Diagnoses Acute hypoxemic respiratory failure J96.01 Pleural effusion on right J90 SHAYE (obstructive sleep apnea) G47.33 Asthma J45.909
[2023-10-25 11:08] LABS: C Reactive Protein 4.61 mg/dl (0-0.5)
[2023-10-25] MEDS: PANTOprazole 40 MG in SYRINGE 0 ML IV SCH (11:14)
[2023-10-25] MEDS: cephALEXin 500 MG CAP PO SCH (13:26)
--- NOTE | 2023-10-25 14:53 | Hospitalist Progress Note ---
Date of Service October 25, 2023 Assessment & Plan (1) Atelectasis of both lungs: (2) Asthma: (3) SHAYE (obstructive sleep apnea): (4) Status post abdominoplasty: (5) Pneumonitis: (6) Acute dyspnea: (7) Acute hypoxemic respiratory failure: Plan 62 yo female PMHx HLD, insomnia, migraine, GERD anxiety with depression admitted for shortness of breath. #Acute respiratory failure with hypoxia 2/2 dependent atelectasis and likely aspiration pneumonitis Titrate O2 to maintain >92% Pulm consult: No evidence of active PNA, negative procal - stop abx Dependent atelectasis - incentive spirometry Possible fat embolism 2/2 recent liposuction #Intermittent Asthma PRN albuterol at home Does not appear in active exacerbation Duonebs q2h PRN #S/p abdominoplasty Abdominal binder Lidocaine pump infusion Pain control PRN #GERD pantoprazole 20mg BID #Migraine headache/anxiety/insomnia- homevduloxetine, propranolol, rizatriptan, and zolpidem FENGI: heart healthy Code status: full DVT prophylaxis: SCDs Isolation: none Disposition: PCU/tele Admission and Anticipated Discharge Date Admission Date: October 25, 2023 Supervising Physician Co-Signing Physician Notes Attending Physician Supervision Note: I independently interviewed and examined the patient and verified the edouard history and physical, reviewed labs and image studies and agree with findings and care plan noted above. Subjective Patient seen and evaluated at bedside this morning. No acute events overnight. On HFNC 25L @ 30% FiO2. Satting high 80s. Review of Systems Review of Systems: reviewed, per HPI Physical Exam Physical Exam: Constitutional:mild acute distress HEENT: NCAT, no conjunctival injection CV: regular rhythm, no murmur appreciated, extremities well-perfused, no LE ed mike Resp: diminished lung sounds bilateral bases, otherwise CTAB MSK: no gross deformities appreciated Skin: warm, dry, no rash appreciated, abdominal binder in place Neuro: alert, oriented, no focal neurologic deficit appreciated Results & Data Results & Data Vital Signs (Past 12 Hours) Vital Signs Pulse Pulse Resp BP Pulse Ox Pulse Ox O2 Del Method 10/25/23 10:34 75 16 97 High Flow Nasal Cannula 10/25/23 07:20 73 10/25/23 06:49 83 18 97 High Flow Nasal Cannula 10/25/23 06:03 69 14 94 10/25/23 06:00 148/77 H 10/25/23 05:39 71 16 95 10/25/23 05:30 74 15 95 10/25/23 05:24 73 15 95 10/25/23 04:48 96 10/25/23 04:24 68 17 10/25/23 04:15 80 21 10/25/23 04:03 74 16 97 10/25/23 03:51 69 19 97 10/25/23 03:48 72 20 98 High Flow Nasal Cannula 10/25/23 03:42 70 16 97 10/25/23 03:29 72 10/25/23 03:27 71 17 98 10/25/23 03:26 High Flow Nasal Cannula 10/25/23 03:18 High Flow Nasal Cannula 10/25/23 03:16 95 10/25/23 03:15 70 17 98 10/25/23 03:03 72 20 97 O2 Flow Rate FiO2 10/25/23 10:34 25 30 10/25/23 07:20 10/25/23 06:49 25 30 10/25/23 06:03 10/25/23 06:00 10/25/23 05:39 10/25/23 05:30 10/25/23 05:24 10/25/23 04:48 10/25/23 04:24 10/25/23 04:15 10/25/23 04:03 10/25/23 03:51 10/25/23 03:48 25 30 10/25/23 03:42 10/25/23 03:29 10/25/23 03:27 10/25/23 03:26 10/25/23 03:18 10/25/23 03:16 10/25/23 03:15 10/25/23 03:03 Resident Activity Tracking Resident Involvement: Resident Care Provided Care Provided: Adult Hospital Medicine
--- NOTE | 2023-10-25 19:14 | XCELERA ---
[id number]
[2023-10-25] MEDS: ACETAMINOPHEN 325 MG TAB PO PRN (19:47)
[2023-10-25] MEDS: PANTOprazole 40 MG TAB PO SCH (19:52)
[2023-10-25] MEDS: ZOLPIDEM TARTRATE 5 MG TAB PO PRN (22:06)
[2023-10-26 07:24] LABS: Basophils # (auto) 0.03 K/uL (0.00-0.20); Basophils % (auto) 0.4 %; Eosinophils # (auto) 0.12 K/uL (0.00-0.50); Eosinophils % (auto) 1.5 %; Hematocrit (blood only) 33.3 % (37.0-47.0); Immature Granulocytes # (auto) 0.02 K/uL (0.01-0.20); Immature Granulocytes % (auto) 0.3 %; Lymphocytes # (auto) 1.16 K/uL (1.20-3.40); Mean Corpuscular Hemoglobin 29.6 pg (25.0-34.0); Mean Corpuscular Volume 89.5 fL (80.0-100.0); Mean Platelet Volume 9.5 fL (9.4-12.4); Monocytes # (auto) 0.62 K/uL (0.11-0.59); Neutrophils % (auto) 74.8 %; Platelet Count 196 K/uL (130-400); RDW Coefficient of Variation 13.3 % (11.5-14.5); RDW Standard Deviation 43.5 fL (36.4-46.3); Red Blood Count 3.72 M/uL (4.20-5.40); White Blood Count 7.75 K/ul (4.8-10.8)
[2023-10-26 07:50] LABS: Albumin Level 3.5 gm/dl (3.4-5.0); BUN Creatinine Ratio 13.5 (10-20); Calcium 8.4 mg/dl (8.6-10.3); Creatinine Clr Calc Pharmacy 77.1 ml/min; Est GFR (African American) 100.6 ml/min; Est GFR (Non-African American) 86.8 ml/min; Phosphorus 2.2 mg/dl (2.5-4.9); Potassium 3.6 mmol/L (3.5-5.1)
--- NOTE | 2023-10-26 10:59 | Pulmonology Progress Note ---
Date of Service October 26, 2023 Assessment & Plan (1) Acute hypoxemic respiratory failure: (2) Pleural effusion on right: (3) SHAYE (obstructive sleep apnea): (4) Asthma: Plan CT chest 10/24/2023 personally reviewed:Small right-sided pleural effusion Dependent atelectasis bilateral lower lobes Insignificant mediastinal lymphadenopathy -- Acute respiratory failure with hypoxia Multifactorial BNP 32 Nasal MRSA negative, procalcitonin 0.06 Dependent atelectasis bilateral lower lobes likely causing VQ mismatch Patient also had recent liposuction done which is associated with fat embolization. Fat emboli usually are difficult to find on CTA of the chest unless they are massive. --Intermittent asthma Only albuterol at home Does not seem to be in exacerbation -- SHAYE Mild, last sleep study was approximately 10 years ago Has gained weight since then Recommend outpatient polysomnography Admission and Anticipated Discharge Date Admission Date: October 25, 2023 Supervising Physician Co-Signing Physician Notes I saw and evaluated the patient with Alok Pierre PA-C, and agree with findings and plan as documented in the note. Patient seen and examined at bedside. No acute distress, no dressings overnight She was saturating 93% on room air at the time of examination Denied any headache, no nausea, no vomiting She stated that she is feeling much better compared to when she came to the hospital Has been moving around. Does complain of abdominal pain for which she has been getting pain medication Patient's son-in-law was in the room at the time of examination Constitutional: No acute distress HEENT: EOMI, PERRLA Respiratory system: Decreased air entry bilaterally, no wheeze, no rhonchi, positive crackles bilateral lower lobes CVS: S1-S2 positive, no murmurs or gallops Abdomen: Soft, nontender, nondistended, positive bowel sounds x4, abdominal bandage in place with JULIANN drain Extremities: +2 pulses bilaterally radialis/ dorsalis pedis, no cyanosis, no edema Neuro: Awake alert oriented x3 Psych: Normal mood and affect G/U: No [place] Plan: There is likely dependent atelectasis, continue with incentive spirometry. Recommend checking the patient for the need of oxygen on exertion prior to discharge No further recommendation from pulmonary perspective, will sign off Please call directly with any questions Please note the above document was generated using voice recognition software. It may contain grammatical, syntax or spelling errors.Any formal questions or concerns about the content, text or information contained within the body of this dictation should be directly addressed to the provider for clarification. Subjective Patient seen and evaluated at bedside. She reports feeling better with her breathing this time, but still has pain in her abdomen related to recent surgery. She denies complaints of chest pain, palpitations, pleuritic pain, or hemoptysis. She is anxious to be discharged home soon. Review of Systems 2 Review of Systems: Unchanged from prior. Physical Exam 2 Physical Exam: VITAL SIGNS - Vital signs and nursing notes were reviewed. GENERAL - 62-year-old female appearing her stated age who is in no acute distress. Communicates well with provider and answers questions appropriately. LUNGS - Chest wall evaluation demonstrates normal chest wall A:P diameter. Auscultation reveals clear breath sounds bilaterally without wheezes, rales, or rhonchi appreciated. CARDIAC - RRR with S1/S2. No murmur, rubs, or gallops appreciated. PSYCH - A&Ox3 and cooperates fully with examiner. Pt is very pleasant and interacts well with examiner. Skin: no rashes, warm and dry Lymphatic: no cervical or axillary lymphadenopathy Results & Data Results & Data Vital Signs (Past 12 Hours) Vital Signs Temp Pulse Pulse Resp BP Pulse Ox O2 Del Method 10/26/23 10:51 36.7 C 73 17 144/88 H 91 Room Air 10/26/23 09:37 83 10/26/23 09:37 Room Air 10/26/23 07:28 36.6 C 75 16 152/77 H 92 Room Air 10/26/23 07:19 36.7 C 82 19 158/89 H 97 Room Air 10/26/23 07:11 77 15 92 Room Air 10/26/23 02:42 36.5 C 78 18 150/78 H 92 Room Air 10/25/23 23:00 91 H FiO2 10/26/23 10:51 10/26/23 09:37 10/26/23 09:37 10/26/23 07:28 10/26/23 07:19 10/26/23 07:11 21 10/26/23 02:42 10/25/23 23:00 Laboratory Results 10/26/23 06:43 10/26/23 06:43 PG Care Time/CCT Total # of Minutes Spent Total Time Spent with Patient: Total time spent is greater than 50% in coordination of care (as documented) at patient's floor/unit and/or counseling patient: Coding Level of Care Code 29524 SUB INP/OBS CARE 235MIN Diagnoses Acute hypoxemic respiratory failure J96.01 Pleural effusion on right J90 SHAYE (obstructive sleep apnea) G47.33 Asthma J45.909
--- NOTE | 2023-10-26 12:40 | Discharge Summary ---
Date of Service October 26, 2023 Admission HPI Per Admitting Provider The patient is a 62-year-old female with a past medical history including hyperlipidemia, insomnia, migraine headache, GERD, anxiety with depression and postmenopausal state. She underwent a tummy tuck surgery at [facility] on the morning of October 22, and was discharged to home on oral Percocet and a lidocaine pump infusion. She awoke the following morning, yesterday morning with shortness of breath at around 8:30 AM, which has continued to worsen as the day progressed. She does report the expected abdominal discomfort associated with a tummy tuck, and has had some difficulty breathing deep breaths associated with this abdominal pain. She presents to the ED this evening at [facility] for assessment. Admission Exam Per Admitting Provider The patient is awake, alert and oriented 3, well developed and well nourished, normocephalic and atraumatic, lying in bed and in no acute distress. HEENT--PERRL, EOMI, mucous membranes and oropharynx normal Neck--supple. No JVD. No bruits. Thyroid normal, trachea midline, no adenopathy. Heart--normal S1 and S2. No murmurs, rubs or gallops. Lungs--coarse breath sounds at the bases bilaterally, right worse than left. No respiratory distress, no accessory muscle use. Abdomen--abdominal binder in place, with lidocaine pump Extremities--no cyanosis or clubbing. No edema. Dermatologic--normal skin turgor, normal color, no abnormal lymph nodes, no rash. Neurologic--cranial nerves II through XII grossly intact. Rheumatologic--normal range of motion. Psychiatric--normal affect. Principal Diagnosis respiratory failure Discharge Exam Constitutional:mild acute distress HEENT: NCAT, no conjunctival injection CV: regular rhythm, no murmur appreciated, extremities well-perfused, no LE edema Resp: CTAB, good air entry bilaterally, on RA MSK: no gross deformities appreciated Skin: warm, dry, no rash appreciated, abdominal binder in place Neuro: alert, oriented, no focal neurologic deficit appreciated Discharge Data Allergies Allergy/AdvReac Type Severity Reaction Status Date / Time No Known Allergies Allergy Unverified 10/25/23 01:02 Consultations 10/25/23 00:56 ED Decision to Admit Stat 10/25/23 09:51 Consult Pulmonology Routine Ordered Studies 10/24/23 22:56 CT for pulmonary embolism PE [CT angio chest PE protocol] Stat Hospital Course (1) Atelectasis of both lungs: (2) Asthma: (3) SHAYE (obstructive sleep apnea): (4) Status post abdominoplasty: (5) Pneumonitis: (6) Acute dyspnea: (7) Acute hypoxemic respiratory failure: Plan 62 yo female PMHx HLD, insomnia, migraine, GERD anxiety with depression admitted for shortness of breath. #Acute respiratory failure with hypoxia 2/2 dependent atelectasis and likely aspiration pneumonitis On room air at discharge Pulm consult: No evidence of active PNA, negative procal - stop abx Dependent atelectasis - incentive spirometry Possible fat embolism 2/2 recent liposuction #Intermittent Asthma PRN albuterol at home Does not appear in active exacerbation Refill for albuterol provided at discharge #S/p abdominoplasty Abdominal binder Lidocaine pump infusion Pain control PRN #GERD pantoprazole 20mg BID #Migraine headache/anxiety/insomnia- home duloxetine, propranolol, rizatriptan, and zolpidem Total Time Total Time Spent Total Time Spent (In Minutes): <30 Discharge Plan Discharge Items Patient Disposition: Home - Self-Care Reason For Visit: ASPIRATION PNEUMONIA,ACUTE RESP FAILURE W/ HYPOXIA Discharge Diagnosis: Hypoxia, atelectasis, possible pneumonitis, possible fat embolism Activity: Per Instructions section Non-emergency contact: Primary Care Provider Call non-emergency contact if: your symptoms worsen Follow-up/Referrals: PCP,NO [Primary Care Provider] - Diet: Regular Addtl Attending Provider Instructions: You were admitted to the hospital for shortness of breath. You were treated with supplemental oxygen. You were seen by the model maker plaster who felt that your symptoms could have multiple causes. Imaging suggested that you had compression in your lung bases known as atelectasis. There is also the possibility that you had pneumonitis (inflammation of your lungs) from aspiration during your intubation. A fat embolism is another possible cause of your symptoms. A refill for your albuterol inhaler will be sent to your pharmacy. A discharge summary will be sent to your primary care physician to ensure continuity of care. Please bring this discharge summary with you to your next office appointment so that your provider can review it at that time. Follow-up appointments: Make a follow-up appointment with your PCP within the next week. It is very important that you follow up with them shortly after discharge from the hospital. Keep all your follow-up appointments as already scheduled. If you cannot make an appointment, notify your provider. Medications: Your medication list has been reviewed and reconciled upon discharge to ensure accuracy and continuity of care. An updated list of all your medications is included with your hospital discharge paperwork. Please review this list closely, and make note of any changes. If you have any issues filling these prescriptions, please call [phone] and ask to leave a message for Dr. Duane Hatch. Take your medications as instructed; do not skip a dose of your medicines. Make sure all of your doctors know every medicine you are taking (including obkz-dxz-kpyuixx medicines, vitamins, and supplements). Call your primary care provider before taking any new medicines (including ggon-nbg-pawybli medicines, vitamins, and supplements), because some of these may interact with your current medications, or may make your symptoms worse. Tell your primary care provider if you cannot afford your medications. CONTACT YOUR PRIMARY CARE PROVIDER if you experience any of the following: Increasing shortness of breath Fever Difficulty following your treatment plan, or difficulty taking medications CALL 911 OR GO TO THE EMERGENCY DEPARTMENT if you experience any of the following: Sudden, severe abdominal pain or nausea/vomiting Severe chest pain, or chest pain that radiates (moves) to your jaw or arm Sudden, severe shortness of breath or difficulty breathing Thank you for allowing us to participate in your care. Pending Studies at Discharge: No Stand-Alone Forms: My [facility] Medications and DC Order Prescriptions: New albuterol sulfate [Ventolin HFA] 90 mcg/actuation HFA aerosol inhaler 2 puff inhalation Q4H PRN (Reason: shortness of breath or wheezing) Qty: 6.7 0RF Continued pantoprazole 20 mg tablet,delayed release (DR/EC) 20 mg PO BID meloxicam 7.5 mg tablet 7.5 mg PO .HOLD oxycodone-acetaminophen 5-325 mg tablet 1 tab PO Q4 PRN (Reason: Pain) rizatriptan 10 mg tablet,disintegrating 10 mg PO DIRECTED PRN (Reason: Migraine Headache) cephalexin 500 mg capsule 500 mg PO QID propranolol 80 mg capsule,extended release 24hr 80 mg PO DAILY docusate sodium [Col-Rite] 100 mg capsule 100 mg PO HS PRN (Reason: Constipation) zolpidem 10 mg tablet 5 - 10 mg PO HS PRN (Reason: Sleep) Prempro 0.45-1.5 mg Tablet 1 tab PO DAILY rosuvastatin 10 mg tablet 10 mg PO DAILY duloxetine 60 mg capsule,delayed release(DR/EC) 60 mg PO DAILY Discharge Orders: Discharge Order (Routine); Ordered 10/26/23 Ordered By: Larry Mccabe Admission Data Admit Date/Time: 10/25/23 01:46 Attending Provider: Larry Mccabe Admit Provider: Usman Allen Primary Care Provider: PCP,NO Other Providers: Usman Allen; Ruben Nevarez Supervising Physician Co-Signing Physician Notes I personally examined the patient and verified all edouard points of history and exam, discussed case, and agree with decision making with Dr Hatch Feels better. Breathing better. Would like to go home. Vitals noted, in general she is awake and alert pleasant no distress. HEENT normocephalic atraumatic mucous membranes moist. Breathing unlabored no accessory muscle use good effort. Skin without rashes pallor or icterus. Neuro without focal deficits. Hypoxiaatelectasis, fat embolism, possibly both. Has improved, is on room air, feeling good. Safe/stable for home. Otherwise as above. Resident Activity Tracking Resident Involvement: Resident Care Provided Care Provided: Adult Hospital Medicine
--- NOTE | 2023-10-26 16:55 | Billing Data ---
Date of Service October 26, 2023 Coding Level of Care Code 27814 IN/OBS DISCH 30 MIN/LESS
--- NOTE | 2023-10-27 21:44 | Electrocardiogram Report ---
Test Reason : Blood Pressure : / mmHG Vent. Rate : 085 BPM Atrial Rate : 085 BPM P-R Int : 144 ms QRS Dur : 094 ms QT Int : 364 ms P-R-T Axes : 026 005 021 degrees QTc Int : 433 ms Normal sinus rhythm Normal ECG No previous ECGs available Confirmed by Kareem Grove ([id number]) on 10/27/2023 9:44:03 PM Referred By: NO PCP Confirmed By:Kareem Grove
== END 2023-10-26 18:00 | disposition home or self-care (01) | DRG 177 ==
LOC: ED 21:28 → SUATTDRO 10-25 01:46 → EDINP 10-25 01:46 → INTOOBSV 10-25 01:46 → 2S 10-25 15:21

== ENCOUNTER 2023-10-30 21:14 | Inpatient (IN) ==
--- NOTE | 2023-10-30 22:10 | Emergency Department Note ---
History of Present Illness General Chief complaint: Shortness of Breath/Dyspnea Stated complaint: SOB, O2 LOW, INFECTION, CONFUSION, SPEECH Time Seen by Provider: 10/30/23 21:50 History of Present Illness Maximum Pain Intensity: 10 This is a 62-year-old female presenting to the emergency department with multiple complaints. The patient had abdominoplasty performed on 10/23/23 at [facility]. She did present to this facility on 10/24/2023 with shortness of breath, where ultimately she was found to have aspiration pneumonia. Patient was given antibiotics and discharged home on Keflex. Patient states for the past 1 to 2 days she has had dysuria symptoms. She did have a surgical follow- up on 10/30/2023 and did voice concern for urinary symptoms. The patient is having some urinary incontinence and increased discomfort in the abdomen. The patient was instructed to go to the emergency room, and again came to this facility. She has not had distinct chest pain, chest tightness, or shortness of breath the past few days. She does have discomfort in her abdomen. She rates the pain a 10/10. Home Medications Medication Instructions Recorded Confirmed Type conj estrogen-medroxyprogesterone 1 tab PO DAILY 10/25/23 10/31/23 History 0.45 mg-1.5 mg tablet (Prempro) docusate sodium 100 mg capsule 100 mg PO HS PRN Constipation 10/25/23 10/31/23 History ([facility]-Rite) duloxetine 60 mg capsule,delayed 60 mg PO DAILY 10/25/23 10/31/23 History release meloxicam 7.5 mg tablet 7.5 mg PO .HOLD 10/25/23 10/31/23 History oxycodone-acetaminophen 5 mg-325 1 tab PO Q4 PRN Pain 10/25/23 10/31/23 History mg tablet pantoprazole 20 mg tablet,delayed 20 mg PO BID 10/25/23 10/31/23 History release propranolol 80 mg capsule,24 80 mg PO DAILY 10/25/23 10/31/23 History hr,extended release rizatriptan 10 mg disintegrating 10 mg PO DIRECTED PRN Migraine 10/25/23 10/31/23 History tablet Headache rosuvastatin 10 mg tablet 10 mg PO DAILY 10/25/23 10/31/23 History zolpidem 10 mg tablet 5 - 10 mg PO HS PRN Sleep 10/25/23 10/31/23 History albuterol sulfate 90 mcg/actuation 2 puff inhalation Q4H PRN 10/26/23 10/31/23 Rx aerosol inhaler (Ventolin HFA) shortness of breath or wheezing #6.7 grams Allergies Allergy/AdvReac Type Severity Reaction Status Date / Time No Known Allergies Allergy Unverified 10/25/23 01:02 Past Med/Surg History Problem List (Updated 10/31/23 @ 05:56 by Raymond Cerda PA-C) SAGAR (acute kidney injury) (Acute) Urinary retention (Acute) Pneumonitis Atelectasis of both lungs Asthma SHAYE (obstructive sleep apnea) Status post abdominoplasty 10/23/2023 at [facility] Aspiration pneumonia of both lower lobes Aspiration pneumonia (Acute) Pleural effusion on right (Acute) Acute hypoxemic respiratory failure (Acute) Acute dyspnea (Acute) Medical History (Updated 10/31/23 @ 05:56 by Raymond Cerda PA-C) Postmenopausal state Insomnia GERD (gastroesophageal reflux disease) Migraine headache Hyperlipidemia Anxiety and depression Social History Smoking Status: Never smoker Hx Alcohol Use: No Hx Substance Use: No Preferred Language: Czech Communication Ability: Effective Zoo Keeper Required: No Beliefs That Will Affect Care: None Current Living Situation: Alone Feels Safe at Home: Yes Safety Concerns: Feels Safe At This Time Assistive Devices: Glasses Review of Systems A total of 10 systems reviewed and were otherwise negative Physical Exam Vital Signs Vital Signs - 24 hr 10/30/23 21:16 10/30/23 21:16 10/30/23 21:17 Temperature 36.4 C L Temperature Source Temporal Artery Scan Pulse Rate 103 H Pulse Rate [Apical] Pulse Rhythm Pulse Rhythm [Apical] Pulse Strength [Apical] Respiratory Rate 20 Respiratory Effort / Characteristics Labored Respiratory Depth Deep Respiratory Pattern Regular Blood Pressure 157/90 H Blood Pressure [Right Arm] Blood Pressure Mean 112 Blood Pressure Mean [Right Arm] Blood Pressure Position [Right Arm] Pulse Oximetry 88 L 93 Oxygen Delivery Method Nasal Cannula Room Air Room Air Oxygen Flow Rate 2 0 Sepsis Recent Fever Within 48 Hours No Sepsis New/Unexplained Change in Mental Status No Sepsis Action Taken by Nursing No Action Required Oxygen Flow Rate - Titration 2 Pulse Oximetry Post Tiitration 96 10/30/23 22:07 10/30/23 23:01 10/30/23 23:16 Temperature Temperature Source Pulse Rate 100 H 96 H Pulse Rate [Apical] 92 H Pulse Rhythm Regular Pulse Rhythm [Apical] Regular Pulse Strength [Apical] Normal Respiratory Rate 18 18 Respiratory Effort / Characteristics Non-Labored Spontaneous Respiratory Depth Normal Respiratory Pattern Regular Blood Pressure Blood Pressure [Right Arm] 145/82 H Blood Pressure Mean Blood Pressure Mean [Right Arm] 103 Blood Pressure Position [Right Arm] Lying Pulse Oximetry 98 96 Oxygen Delivery Method Nasal Cannula Nasal Cannula Oxygen Flow Rate 2 2 Sepsis Recent Fever Within 48 Hours Sepsis New/Unexplained Change in Mental Status Sepsis Action Taken by Nursing Oxygen Flow Rate - Titration Pulse Oximetry Post Tiitration 10/31/23 01:00 Temperature Temperature Source Pulse Rate Pulse Rate [Apical] 86 Pulse Rhythm Pulse Rhythm [Apical] Regular Pulse Strength [Apical] Normal Respiratory Rate 18 Respiratory Effort / Characteristics Non-Labored Spontaneous Respiratory Depth Normal Respiratory Pattern Regular Blood Pressure Blood Pressure [Right Arm] 152/85 H Blood Pressure Mean Blood Pressure Mean [Right Arm] 107 Blood Pressure Position [Right Arm] Lying Pulse Oximetry 96 Oxygen Delivery Method Nasal Cannula Oxygen Flow Rate 2 Sepsis Recent Fever Within 48 Hours Sepsis New/Unexplained Change in Mental Status Sepsis Action Taken by Nursing Oxygen Flow Rate - Titration Pulse Oximetry Post Tiitration VITALS: Vitals are noted on the nurse's note and reviewed by myself. Vital signs stable. GENERAL: Well-developed, well-nourished, white female, who is pleasant but moderately uncomfortable. HEAD: Normocephalic atraumatic. NECK: Supple without nuchal rigidity. No lymphadenopathy. No thyromegaly. Cervical spine is nontender. HEART: Regular rate and rhythm without murmurs gallops or rubs. LUNGS: Clear to auscultation bilaterally without wheezes, rales or rhonchi. No retractions or accessory muscle use. ABDOMEN: Positive normal bowel sounds x 4. Diffuse mild tenderness. No CVA tenderness. No rebound or guarding. MUSCULOSKELETAL: No muscle atrophy, erythema, or edema noted. Full range of motion in all extremities. Course Administered Medications Lactated Ringer's (Lr) 1,000 mls @ 125 mls/hr IV .Q8H ANJEL Stop: 11/30/23 03:00 Last Admin: 10/31/23 04:28 Dose: 125 mls/hr Documented By: CONRADO Discontinued Medications Acetaminophen (Ofirmev) 1,000 mg in 100 mls @ 400 mls/hr IV NOW STA Stop: 10/30/23 22:48 Last Infusion: 10/30/23 23:19 Dose: Infused Documented By: Admin: 10/30/23 22:40 Dose: 400 mls/hr Documented By: OSMANIK Morphine Sulfate (Morphine Sulfate 4 Mg/Ml 1 Ml Carp\Vial) 4 mg IV NOW STA Stop: 10/30/23 22:34 Last Admin: 10/30/23 22:40 Dose: 4 mg Documented By: OSMANIK Medical Decision Making Differential Diagnosis Differential diagnosis: Etiologies such as biliary colic, cholecystitis, hepatitis, pancreatitis, cardiac disease, pancreatitis, gastritis, peptic ulcer disease, appendicitis, cystitis, diverticulitis, mesenteric ischemia, inflammatory bowel disease, ileus, bowel obstruction, testicular/adnexal torsion, aortic pathology, shingles, as well as others were considered Laboratory Data 10/30/23 21:48 10/30/23 21:48 Lab Results 10/30/23 10/30/23 10/31/23 Range/Units 21:48 23:15 01:15 WBC 10.06 (4.8-10.8) K/ul RBC 3.51 L (4.20-5.40) M/uL Hgb 10.8 L (12.0-16.0) g/dl Hct 31.4 L (37.0-47.0) % MCV 89.5 (80.0-100.0) fL MCH 30.8 (25.0-34.0) pg MCHC 34.4 (32.0-36.0) g/dL RDW Std Deviation 46.2 (36.4-46.3) fL RDW Coeff of Michelle 14.5 (11.5-14.5) % Plt Count 138 (130-400) K/uL MPV 9.9 (9.4-12.4) fL Immature Gran % (Auto) 0.6 % Neut % (Auto) 74.2 % Lymph % (Auto) 13.6 % [place] % (Auto) 9.0 % Eos % (Auto) 2.2 % Baso % (Auto) 0.4 % Neut # (Auto) 7.46 H (1.40-6.50) K/uL Lymph # (Auto) 1.37 (1.20-3.40) K/uL [place] # (Auto) 0.91 H (0.11-0.59) K/uL Eos # (Auto) 0.22 (0.00-0.50) K/uL Baso # (Auto) 0.04 (0.00-0.20) K/uL Immature Gran # (Auto) 0.06 (0.01-0.20) K/uL Absolute Nucleated RBC 0.02 (0.00-0.12) K/uL Nucleated RBC % (auto) 0.2 % Sodium 125 L (136-145) mmol/L Potassium 4.4 (3.5-5.1) mmol/L Chloride 90 L (98-107) mmol/L Carbon Dioxide 21 (21-32) mmol/L Anion Gap 14 H (3-11) BUN 71 H (6-23) mg/dl Creatinine 7.65 H* (0.6-1.2) mg/dl Est Cr Clr Drug Dosing Not Reportable Est GFR ( Amer) 6.0 ml/min Est GFR (Non-Af Amer) 5.2 ml/min BUN/Creatinine Ratio 9.3 L (10-20) Glucose 127 H (70-99(Fasting)) mg/dl Lactate 2.1 H* 1.8 (0.4-2.0) mmol/L Calcium 8.9 (8.6-10.3) mg/dl Magnesium 2.3 (1.7-2.4) mg/dl Total Bilirubin 0.5 (0.2-1.0) mg/dl Direct Bilirubin 0.1 (0-0.2) mg/dl AST 22 (13-39) U/L ALT 17 (7-52) U/L Alkaline Phosphatase 87 (34-104) U/L Troponin I High Sens 9.5 (0-14) pg/ml B-Natriuretic Peptide 19 (0-100) pg/ml Total Protein 6.4 (6.0-8.3) gm/dl Albumin 3.4 (3.4-5.0) gm/dl Procalcitonin Cancelled 0.23 Urine Color Dark Yellow Urine Appearance Clear (Clear) Urine pH 5.5 (4.5-7.5) Ur Specific [place] 1.008 (1.000-1.030) Urine Protein Negative (Negative) Urine Glucose (UA) Negative (Negative) Urine Ketones Negative (Negative) Urine Blood Negative (Negative) Urine Nitrite Positive A (Negative) Urine Bilirubin Negative (Negative) Urine Urobilinogen Negative (Negative) Ur Leukocyte Esterase Negative (Negative) Urine WBC (Auto) 0-5 (0-5) /hpf Urine RBC (Auto) 0-2 (0-2) /hpf U Hyaline Cast (Auto) 0-2 (0-2) /lpf U Epithel Cells (Auto) 0-2 (0-2) /hpf Urine Bacteria (Auto) None Seen (None Seen) Imaging Data Radiologist's Impression: Abdomen/Pelvis CT 10/30/23 23:01 Exam(s): CT ABDOMEN + PELVIS Without Contrast EXAM: CT Abdomen and Pelvis Without Intravenous Contrast CLINICAL HISTORY: abd pain. Recent abdominoplasty. Elevated creat. TECHNIQUE: Axial computed tomography images of the abdomen and pelvis without intravenous contrast. CTDI is 27.04 mGy and DLP is 1367.36 mGy-cm. Automated exposure control was utilized for the study. A dose lowering technique was utilized adhering to the principles of ALARA. COMPARISON: No relevant prior studies available. FINDINGS: Lung bases: Curvilinear changes noted at the lung bases posteriorly. No definite consolidation. ABDOMEN: Liver: Unremarkable. Gallbladder and bile ducts: Layering hyperdensity noted in the posterior aspect of the gallbladder. No calcified gallstones. No CT evidence for gallbladder wall thickening or biliary dilatation. Pancreas: Unremarkable. No ductal dilation. Spleen: Unremarkable. No splenomegaly. Adrenals: Unremarkable. No mass. Kidneys and ureters: The kidneys demonstrate normal cortical margins. No nephrolithiasis. Mild pelvocaliectasis and symmetric bilateral proximal to mid ureterectasis noted without ureteral stones or dilation of the distal ureters. Stomach and bowel: Stomach is mild to moderately distended with fluid and gas. No gastric mucosal thickening. No evidence for bowel obstruction. Evaluation of the bowel mucosa is slightly limited without contrast; however, no definite focal asymmetry suggested. Mild to moderate stool burden. PELVIS: Appendix: No findings to suggest acute appendicitis. Bladder: A Burleson catheter is noted in the decompressed bladder. There is some gas in the bladder without bladder stones or bladder wall thickening. Reproductive: Unremarkable as visualized. ABDOMEN and PELVIS: Intraperitoneal space: Unremarkable. No free air. No significant fluid collection. Bones/joints: No acute fracture. No dislocation. Soft tissues: Postsurgical changes involving the superficial soft tissues of the abdomen and pelvis, consistent with recent abdominoplasty. Bilateral inferior approach superficial drains are noted along the superficial margin of the abdominopelvic wall musculature. No loculated fluid collection or subcutaneous hematoma identified. Superficial fat stranding and edema noted throughout the nondilated dependent portions of the lateral and posterior aspect of the superficial soft tissues. There is also subcutaneous edema noted extending into the proximal lower extremities, left minimally greater than right. There is some subcutaneous emphysema, predominantly along the course of the superficial drains. Vasculature: Mild atherosclerotic calcification of the normal caliber aorta and iliac arteries. No aneurysm. Lymph nodes: Unremarkable. No enlarged lymph nodes. IMPRESSION: 1. Postsurgical changes involving the superficial soft tissues of the abdomen and pelvis, consistent with recent abdominoplasty. Bilateral inferior approach superficial drains are noted along the superficial margin of the abdominopelvic wall musculature. No loculated fluid collection or subcutaneous hematoma identified. Superficial fat stranding and edema noted throughout the nondilated dependent portions of the lateral and posterior aspect of the superficial soft tissues. There is also subcutaneous edema noted extending into the proximal lower extremities, left minimally greater than right. There is some subcutaneous emphysema, predominantly along the course of the superficial drains. No pneumoperitoneum identified. 2. The kidneys demonstrate normal cortical margins. No nephrolithiasis. Mild pelvocaliectasis and symmetric bilateral proximal to mid ureterectasis noted without ureteral stones or dilation of the distal ureters. The bladder is decompressed with a Burleson catheter in position. No bladder wall thickening or bladder stones. Differential considerations include incidental normal variation versus minimal functional urinary retention. No significant perinephric abnormality. Electronically signed by: Crow Garcia MD 10/31/23 00:48 AM MDM Narrative Physical exam and history were performed. Nursing notes, EMR, and Medication List were personally reviewed. No social concerns were identified as barriers to patients care. Patient appears to have abdominal discomfort bringing her to the ER. IV access was established and labs were obtained. An order was placed for continuous cardiac monitoring. The monitor shows a rate of 98 with normal sinus rhythm. Patient's blood work is as above and was reviewed. She does not have a significantly elevated white blood cell count. She is slightly anemic at 10.8, which is essentially stable from a week ago. Lipase and transaminases are not diagnostic. Patient's pain is markedly elevated at 7.65, where 4 days ago it was 0.74. This is over a 10 fold increase in her creatinine. Because of the elevated creatinine bladder scan was performed and is greater than 1 L. Catheter was placed and ultimately the patient drained over 2 L of urine. Initially the urine was fairly clear, however towards the end it was more bloody. CT scan was performed and independently reviewed by myself and radiology showing no significant acute process. Overall the patient does not appear well for discharge home. Escalation of care is necessary. Case was discussed with my attending, as well as the on-call hospitalist team. Please see the hospitalist team dictation for further patient course, plan,and disposition. The chart was completed utilizing [employer] Speech Voice Recognition Software. Grammatical errors, random word insertions, pronoun errors, and incomplete sentences are an occasional consequence of this system due to software limitations, ambient noise, and hardware issues. Any formal questions or concerns about the content, text, or information contained within the body of this dictation should be directly addressed to the provider for clarification. . Impression & Plan SAGAR (acute kidney injury), Urinary retention Discharge Plan Visit Data Chief Complaint: Shortness of Breath/Dyspnea Stated Complaint: SOB, O2 LOW, INFECTION, CONFUSION, SPEECH ED Provider: Luca Roger ED Midlevel Provider: Raymond Cerda Discharge Problem: SAGAR (acute kidney injury), Urinary retention Patient Disposition: Admitted As Inpatient Discharge Instructions Interventions: ED Discharge Assessment Last Done: 10/31/23 03:01
[2023-10-30 22:27] LABS: Basophils # (auto) 0.04 K/uL (0.00-0.20); Basophils % (auto) 0.4 %; Eosinophils # (auto) 0.22 K/uL (0.00-0.50); Eosinophils % (auto) 2.2 %; Hematocrit (blood only) 31.4 % (37.0-47.0); Hemoglobin 10.8 g/dl (12.0-16.0); Immature Granulocytes # (auto) 0.06 K/uL (0.01-0.20); Immature Granulocytes % (auto) 0.6 %; Lymphocytes # (auto) 1.37 K/uL (1.20-3.40); Lymphocytes % (auto) 13.6 %; Mean Corpuscular Hemoglobin 30.8 pg (25.0-34.0); Mean Corpuscular Hgb Conc 34.4 g/dL (32.0-36.0); Mean Corpuscular Volume 89.5 fL (80.0-100.0); Mean Platelet Volume 9.9 fL (9.4-12.4); Monocytes # (auto) 0.91 K/uL (0.11-0.59); Neutrophils # (auto) 7.46 K/uL (1.40-6.50); Neutrophils % (auto) 74.2 %; Nucleated RBC # (auto) 0.02 K/uL (0.00-0.12); Nucleated RBC % (auto) 0.2 %; Platelet Count 138 K/uL (130-400); RDW Coefficient of Variation 14.5 % (11.5-14.5); RDW Standard Deviation 46.2 fL (36.4-46.3); Red Blood Count 3.51 M/uL (4.20-5.40); White Blood Count 10.06 K/ul (4.8-10.8)
[2023-10-30] MEDS: MoRPHine SULFATE 4 MG/ML 1 ML CARP\\VIAL IV STA (22:40)
[2023-10-30] MEDS: ACETAMINOPHEN 1,000 MG/100 ML VIAL IV STA (22:40)
[2023-10-30 23:03] LABS: Alanine Aminotransferase 17 U/L (7-52); Albumin Level 3.4 gm/dl (3.4-5.0); Alkaline Phosphatase 87 U/L (34-104); Anion Gap 14 (3-11); Aspartate Aminotransferase 22 U/L (13-39); BUN Creatinine Ratio 9.3 (10-20); Bilirubin Direct 0.1 mg/dl (0-0.2); Bilirubin,Total 0.5 mg/dl (0.2-1.0); Blood Urea Nitrogen 71 mg/dl (6-23); Calcium 8.9 mg/dl (8.6-10.3); Carbon Dioxide 21 mmol/L (21-32); Chloride 90 mmol/L (98-107); Est GFR (Non-African American) 5.2 ml/min; Glucose 127 mg/dl (70-99(Fasting)); Magnesium 2.3 mg/dl (1.7-2.4); Potassium 4.4 mmol/L (3.5-5.1); Sodium 125 mmol/L (136-145); Total Protein 6.4 gm/dl (6.0-8.3); Troponin I High Sensitivity 9.5 pg/ml (0-14)
[2023-10-30 23:49] LABS: Appearance Urine Clear (Clear); Bacteria Urine Automated None Seen (None Seen); Bilirubin Urine Negative (Negative); Blood Urine Negative (Negative); Cast Urine Automated 0-2 /lpf (0-2); Color Urine Dark Yellow; Epithelial Cell Urine Auto 0-2 /hpf (0-2); Glucose Urine UA Negative (Negative); Ketones Urine Negative (Negative); Leukocyte Esterase Urine Negative (Negative); Nitrite Urine Positive (Negative); Protein Urine Negative (Negative); RBC Urine Automated 0-2 /hpf (0-2); Specific Gravity Urine 1.008 (1.000-1.030); Urobilinogen Urine Negative (Negative); WBC Urine Automated 0-5 /hpf (0-5); pH Urine 5.5 (4.5-7.5)
--- NOTE | 2023-10-31 00:49 | CT Scan Report ---
Exam(s): CT ABDOMEN + PELVIS Without Contrast EXAM: CT Abdomen and Pelvis Without Intravenous Contrast CLINICAL HISTORY: abd pain. Recent abdominoplasty. Elevated creat. TECHNIQUE: Axial computed tomography images of the abdomen and pelvis without intravenous contrast. CTDI is 27.04 mGy and DLP is 1367.36 mGy-cm. Automated exposure control was utilized for the study. A dose lowering technique was utilized adhering to the principles of ALARA. COMPARISON: No relevant prior studies available. FINDINGS: Lung bases: Curvilinear changes noted at the lung bases posteriorly. No definite consolidation. ABDOMEN: Liver: Unremarkable. Gallbladder and bile ducts: Layering hyperdensity noted in the posterior aspect of the gallbladder. No calcified gallstones. No CT evidence for gallbladder wall thickening or biliary dilatation. Pancreas: Unremarkable. No ductal dilation. Spleen: Unremarkable. No splenomegaly. Adrenals: Unremarkable. No mass. Kidneys and ureters: The kidneys demonstrate normal cortical margins. No nephrolithiasis. Mild pelvocaliectasis and symmetric bilateral proximal to mid ureterectasis noted without ureteral stones or dilation of the distal ureters. Stomach and bowel: Stomach is mild to moderately distended with fluid and gas. No gastric mucosal thickening. No evidence for bowel obstruction. Evaluation of the bowel mucosa is slightly limited without contrast; however, no definite focal asymmetry suggested. Mild to moderate stool burden. PELVIS: Appendix: No findings to suggest acute appendicitis. Bladder: A Burleson catheter is noted in the decompressed bladder. There is some gas in the bladder without bladder stones or bladder wall thickening. Reproductive: Unremarkable as visualized. ABDOMEN and PELVIS: Intraperitoneal space: Unremarkable. No free air. No significant fluid collection. Bones/joints: No acute fracture. No dislocation. Soft tissues: Postsurgical changes involving the superficial soft tissues of the abdomen and pelvis, consistent with recent abdominoplasty. Bilateral inferior approach superficial drains are noted along the superficial margin of the abdominopelvic wall musculature. No loculated fluid collection or subcutaneous hematoma identified. Superficial fat stranding and edema noted throughout the nondilated dependent portions of the lateral and posterior aspect of the superficial soft tissues. There is also subcutaneous edema noted extending into the proximal lower extremities, left minimally greater than right. There is some subcutaneous emphysema, predominantly along the course of the superficial drains. Vasculature: Mild atherosclerotic calcification of the normal caliber aorta and iliac arteries. No aneurysm. Lymph nodes: Unremarkable. No enlarged lymph nodes. IMPRESSION: 1. Postsurgical changes involving the superficial soft tissues of the abdomen and pelvis, consistent with recent abdominoplasty. Bilateral inferior approach superficial drains are noted along the superficial margin of the abdominopelvic wall musculature. No loculated fluid collection or subcutaneous hematoma identified. Superficial fat stranding and edema noted throughout the nondilated dependent portions of the lateral and posterior aspect of the superficial soft tissues. There is also subcutaneous edema noted extending into the proximal lower extremities, left minimally greater than right. There is some subcutaneous emphysema, predominantly along the course of the superficial drains. No pneumoperitoneum identified. 2. The kidneys demonstrate normal cortical margins. No nephrolithiasis. Mild pelvocaliectasis and symmetric bilateral proximal to mid ureterectasis noted without ureteral stones or dilation of the distal ureters. The bladder is decompressed with a Burleson catheter in position. No bladder wall thickening or bladder stones. Differential considerations include incidental normal variation versus minimal functional urinary retention. No significant perinephric abnormality. Electronically signed by: Crow Garcia MD 10/31/23 00:48 AM
--- NOTE | 2023-10-31 02:29 | History & Physical Report ---
Date of Service October 31, 2023 Assessment & Plan (1) Urinary retention: Plan: 62-year-old female with past medical history of hyperlipidemia, insomnia, migraine, GERD, anxiety, recent abdominoplasty with abdominal binder admitted to the hospital for urinary retention -Burleson placed in the ED removing 2 L. UA was positive for nitrite. -Creatinine of 7.65, lactate of 2.1 improved to 1.8, CBC benign, Pro-Alexis negative -Abdominal/pelvis CT taken in the ED showed no nephrolithiasis, no bladder wall thickening, no significant perinephric abnormality. No pneumoperitoneum identified -Blood cultures taken and pending. -Pain meds ordered as needed. -Most likely urinary retention stemming from recent abdominoplasty. -Urinary incontinence most likely due to distended the bladder was prior to Burleson. -Patient is not septic at time of admission, was on Keflex prior to coming into the hospital, will hold off on antibiotics at this time. -Strict I's and O's -Will start on LR at 125 mL/hr -Will hold off on consult to urology and monitor how patient does with Burleson. (2) SAGAR (acute kidney injury): Plan: -Creatinine of 7.65, at time of discharge on 10/25 was 0.74. -Strict I's and O's. -Will start on LR at 125 ml/hr. -BMP in the a.m. (3) SHAYE (obstructive sleep apnea): Plan: -CPAP while inpatient at night (4) Status post abdominoplasty: Plan: -Abdominal binder, lidocaine pump infusion, pain control as needed. -Recommend patient follow-up with surgeon after discharge from the hospital. Plan Fluids: LR @ 125 ml/hr Nutrition: Heart healthy Code status: full code DVT ppx: SCDs Dispo: med/surg History of Present Illness Chief Complaint: Urinary retention Primary Care Provider: Carito Meyers MD The patient is a 62-year-old female with a past medical history including hyperlipidemia, insomnia, migraine headache, GERD, anxiety with depression and postmenopausal state. She underwent a tummy tuck surgery at [facility] on the morning of October 22, and was discharged to home on oral Percocet and a lidocaine pump infusion. Patient was then discharged on 10/26/2023 for pneumonia. Continued taking Keflex. Patient was having issues with urinary retention since discharge. She was also having incontinence. Majority of history obtained from sister as patient was sleeping at time of admission. Patient was having urinary incontinence with standing up. She also was having back pain. She was seen by her surgeon and on 10/29 and was instructed to go to the emergency room to have a scan. In the ED: Burleson was placed and approximately 2 L were removed from the bladder. Majority of patient's symptoms resolved after removal of urine. Was resting comfortably at time of admission. Allergies Allergy/AdvReac Type Severity Reaction Status Date / Time No Known Allergies Allergy Unverified 10/25/23 01:02 Home Medications Medication Instructions Recorded Confirmed Type conj estrogen-medroxyprogesterone 1 tab PO DAILY 10/25/23 10/31/23 History 0.45 mg-1.5 mg tablet (Prempro) docusate sodium 100 mg capsule 100 mg PO HS PRN Constipation 10/25/23 10/31/23 History (Col-Rite) duloxetine 60 mg capsule,delayed 60 mg PO DAILY 10/25/23 10/31/23 History release meloxicam 7.5 mg tablet 7.5 mg PO .HOLD 10/25/23 10/31/23 History oxycodone-acetaminophen 5 mg-325 1 tab PO Q4 PRN Pain 10/25/23 10/31/23 History mg tablet pantoprazole 20 mg tablet,delayed 20 mg PO BID 10/25/23 10/31/23 History release propranolol 80 mg capsule,24 80 mg PO DAILY 10/25/23 10/31/23 History hr,extended release rizatriptan 10 mg disintegrating 10 mg PO DIRECTED PRN Migraine 10/25/23 10/31/23 History tablet Headache rosuvastatin 10 mg tablet 10 mg PO DAILY 10/25/23 10/31/23 History zolpidem 10 mg tablet 5 - 10 mg PO HS PRN Sleep 10/25/23 10/31/23 History albuterol sulfate 90 mcg/actuation 2 puff inhalation Q4H PRN 10/26/23 10/31/23 Rx aerosol inhaler (Ventolin HFA) shortness of breath or wheezing #6.7 grams Past Med/Surg History Problem List (Updated 10/31/23 @ 12:01 by Amira Ceballos DO) Calf pain ASGAR (acute kidney injury) (Acute) Urinary retention (Acute) Pneumonitis Atelectasis of both lungs Asthma SHAYE (obstructive sleep apnea) Status post abdominoplasty 10/23/2023 at [facility] Aspiration pneumonia of both lower lobes Aspiration pneumonia (Acute) Pleural effusion on right (Acute) Acute hypoxemic respiratory failure (Acute) Acute dyspnea (Acute) Medical History Postmenopausal state Insomnia GERD (gastroesophageal reflux disease) Migraine headache Hyperlipidemia Anxiety and depression Social History Smoking Status: Never smoker Hx Alcohol Use: No Hx Substance Use: No Preferred Language: Italian Communication Ability: Effective Student Services Representative Required: No Beliefs That Will Affect Care: None Current Living Situation: Alone Feels Safe at Home: Yes Safety Concerns: Feels Safe At This Time Assistive Devices: None Review of Systems Review of Systems: All systems reviewed & are unremarkable except as noted in Subjective Physical Exam Physical Exam: Constitutional: well-appearing, sleeping CV: regular rhythm, no murmur appreciated, extremities well-perfused, no LE edema Resp: CTABL, no wheezes/rales/rhonchi appreciated, no increased work of breathing MSK: no gross deformities appreciated Skin: warm, dry, no rash appreciated Results & Data Results & Data Vital Signs (Past 12 Hours) Vital Signs Temp Pulse Resp BP Pulse Ox O2 Del Method O2 Flow Rate 10/30/23 23:01 96 H 18 98 Nasal Cannula 2 10/30/23 22:07 100 H 10/30/23 21:17 36.4 C L 103 H 20 157/90 H 93 Room Air 10/30/23 21:16 88 L Room Air 0 10/30/23 21:16 Nasal Cannula 2 Supervising Physician Co-Signing Physician Notes Patient seen and examined, chart reviewed, case discussed with Dr. Escamilla and I agree with the assessment and plan as above. In brief, patient is a 62yo female presenting with urinary retention. Patient had an abdominoplasty performed at [facility] on 10/22/23. She reports some difficulty with urination since then. Obstructive uropathy identified in the ER. Burleson placed with return of 2L of urine. Continues to drain. Cr on 10/26/23 = 0.74. Cr on arrival 7.65 On exam patient is somnolent, arousable, oriented Skin - s/p abdominoplasty - surgical sites appear to be well approximated, no bleeding/drainage/erythema or dehiscence. Drains x [address] HEENT -MMM, Neck supple Heart - +S1/S2, regular, no m/r/g Lungs - CTA, no rales/rhonchi/wheezes Abd - drains in place, abdomen soft, NT/ND. Burleson in place with dark yellow urine in the bag. Nurse at bedside reports draining 1200mL recently Ext - warm, well perfused Labs and images reviewed Assessment/plan Obstructive uropathy - Cr of 7.65. Luckily was within normal limits on 10/26/23. Electrolytes and metabolic panel acceptable Burleson in place, continue to monitor -Avoid nephrotoxic agents -Renal dosing where needed -Continue IVF -Remainder as above
[2023-10-31] MEDS ORDERED: ONDANSETRON INJ 2 MG/ML 2 ML VIAL IV PRN (03:01)
[2023-10-31] MEDS: LACTATED RINGER'S 1,000 ML IV SCH (04:28)
[2023-10-31 05:55] LABS: Hematocrit (blood only) 34.3 % (37.0-47.0); Hemoglobin 11.5 g/dl (12.0-16.0); Mean Corpuscular Hgb Conc 33.5 g/dL (32.0-36.0); Mean Corpuscular Volume 89.6 fL (80.0-100.0); Mean Platelet Volume 9.4 fL (9.4-12.4); Platelet Count 117 K/uL (130-400); RDW Coefficient of Variation 14.5 % (11.5-14.5); RDW Standard Deviation 46.1 fL (36.4-46.3); Red Blood Count 3.83 M/uL (4.20-5.40); White Blood Count 7.99 K/ul (4.8-10.8)
[2023-10-31 06:16] LABS: BUN Creatinine Ratio 12.1 (10-20); Calcium 8.8 mg/dl (8.6-10.3); Creatinine Clr Calc Pharmacy 13.1 ml/min; Est GFR (African American) 11.7 ml/min; Est GFR (Non-African American) 10.1 ml/min; Potassium 3.7 mmol/L (3.5-5.1)
--- NOTE | 2023-10-31 07:12 | Electrocardiogram Report ---
Test Reason : Blood Pressure : / mmHG Vent. Rate : 100 BPM Atrial Rate : 100 BPM P-R Int : 144 ms QRS Dur : 086 ms QT Int : 344 ms P-R-T Axes : 029 007 028 degrees QTc Int : 443 ms Normal sinus rhythm Normal ECG When compared with ECG of 24-OCT-2023 21:50, No significant change was found Confirmed by Hebert Coleman ([id number]) on 10/31/2023 7:12:02 AM Referred By: REFERRED SELF Confirmed By:Antony Coleman
--- NOTE | 2023-10-31 07:27 | Hospitalist Progress Note ---
Date of Service October 31, 2023 Assessment & Plan (1) Urinary retention: Plan: 62-year-old female with past medical history of hyperlipidemia, insomnia, migraine, GERD, anxiety, recent abdominoplasty with abdominal binder admitted to the hospital for urinary retention. - Mckeon placed in the ED removing 2 L. UA was positive for nitrite. - Urine cx pending - blood cx pending - Creatinine of 7.65 on admission, down to 4.39 today, likely secondary to urinary retention and presumed UTI - Abdominal/pelvis CT taken in the ED showed no nephrolithiasis, no bladder wall thickening, no significant perinephric abnormality. No pneumoperitoneum identified - urinary retention most likely secondary to urinary infection as pt is awhile out from her abdominal surg - started CTX today pending urine cx (2) SAGAR (acute kidney injury): Plan: -Creatinine of 7.65, at time of discharge on 10/25 was 0.74, improved to 4.39 today -Strict I's and O's. -continue LR at 125 ml/hr. (3) SHAYE (obstructive sleep apnea): Plan: -CPAP while inpatient at night (4) Status post abdominoplasty: Plan: -Abdominal binder, lidocaine pump infusion, pain control as needed. -Recommend patient follow-up with surgeon after discharge from the hospital. (5) Calf pain: Plan: Given recent surgical course and complicated postop period, not unlikely for pt to have DVT US duplex stat ordered; pending No symptoms of chest pain or SOB at this time Admission and Anticipated Discharge Date Admission Date: October 31, 2023 Supervising Physician Co-Signing Physician Notes I personally examined the patient and verified all edouard points of history and exam, discussed case, and agree with decision making with Dr Ceballos Seen in follow-up from early a.m. admission. Feeling much better. Does note that she was having urinary symptoms to the point of needing Pyridium after her last discharge, before readmission. She also noted asymmetric leg swelling to Dr. Ceballos Vitals noted, in general she is awake and alert pleasant no distress. HEENT normocephalic atraumatic mucous membranes moist. Breathing unlabored no accessory muscle use good effort. Skin without rashes pallor or icterus. Neuro without focal deficits. Urinary retention with acute renal failure due to obstructive uropathyrenal failure improving now that Mckeon is placed. Anticipate ongoing improvement to the point of full resolution. Creatinine was totally normal earlier this weeksuspect the obstructive uropathy just happened in the last day or so. Continue Mckeon drainage. Root cause of urinary retention is most likely infectious (culture sent, started ceftriaxoneshe was on cephalexin for surgical prophylaxis)less likely medication side effect (but seems unlikely with the narcotics, and I would think her degree of constipation would be more likely to cause urinary incontinence than constipation). If her renal failure does not improve, obviously will need to workup further, if her urinary retention persists after treating infection, or no infection is unearthed, then may need to consider urology for assistance on etiology. Doubt either of these will be the case. Asymmetric leg swellingvenous Dopplers ordered. Otherwise as above Subjective 62-year-old female with past medical history of hyperlipidemia, insomnia, migraine, GERD, anxiety, recent abdominoplasty with abdominal binder admitted to the hospital for urinary retention. Today, pt states she is feeling okay. She states that she has not been having any more abdominal pain/cramping since the mckeon was placed last night. Appears very fatigued this morning but otherwise denies any further complaints. States her daughter is a PA. No chest pain or SOB. No nausea or vomiting. Mckeon in place and draining. Around lunch time she did also note some L calf pain when she got up which has been an achy pain. Review of Systems Review of Systems: Per HPI. Physical Exam Physical Exam: General:Very fatigued but able to be awoken with verbal stimuli, no acute distress, HEENT: Normocephalic, moist oral mucosa, Cardio: Regular rate and rhythm, no murmur, + homans on the Left with increased calf circumference on the L compared to the R Resp:Lungs clear to auscultation b/l, no wheezes or rhonchi, GI: Soft and nontender, nondistended, bowel sounds active Skin: Warm, pink, dry, Results & Data Results & Data Vital Signs (Past 12 Hours) Vital Signs Temp Pulse Pulse Pulse Pulse Resp BP 10/31/23 07:18 36.6 C 95 H 16 10/31/23 06:18 10/31/23 05:01 101 H 10/31/23 04:00 36.5 C 106 H 10/31/23 03:01 90 18 10/31/23 01:00 86 18 06/07/24 23:16 92 H 18 10/30/23 23:01 96 H 18 10/30/23 22:07 100 H 10/30/23 21:17 36.4 C L 103 H 20 157/90 H 10/30/23 21:16 10/30/23 21:16 BP Pulse Ox O2 Del Method O2 Flow Rate 10/31/23 07:18 164/82 H 92 Room Air 10/31/23 06:18 134/78 10/31/23 05:01 122/72 10/31/23 04:00 153/70 H 96 Room Air 10/31/23 03:01 155/86 H 96 Nasal Cannula 2 10/31/23 01:00 152/85 H 96 Nasal Cannula 2 10/30/23 23:16 145/82 H 96 Nasal Cannula 2 10/30/23 23:01 98 Nasal Cannula 2 10/30/23 22:07 10/30/23 21:17 93 Room Air 10/30/23 21:16 88 L Room Air 0 10/30/23 21:16 Nasal Cannula 2 Resident Activity Tracking Resident Involvement: Resident Care Provided Care Provided: Adult Hospital Medicine
--- NOTE | 2023-10-31 07:30 | XRay Report ---
SINGLE VIEW CHEST CLINICAL HISTORY: Sepsis. FINDINGS: An AP, portable, upright chest radiograph is compared to chest x-ray and chest CT dated 10/23. The cardiomediastinal silhouette is unremarkable. There are bibasilar airspace opacities. No l arge pleural effusion or pneumothorax is seen. The skeletal structures appear osteopenic. The bony th orax is grossly intact. IMPRESSION: Dependent airspace opacities could represent atelectasis and/or a pneumonitis. Clinical c orrelation will be required and radiographic follow-up to resolution is recommended. ACT 112: Negative or not required by law. Electronically signed by: Juancho Tam M.D. 10/31/2023 7:29 AM
[2023-10-31] MEDS: ROSUVASTATIN CALCIUM 10 MG TAB PO SCH (09:16)
[2023-10-31] MEDS: PROPRANOLOL HCL LA 80 MG CAPCR PO SCH (09:16)
[2023-10-31] MEDS: PANTOprazole 40 MG TAB PO SCH (09:16)
[2023-10-31] MEDS: DULoxetine HCL 60 MG CAP PO SCH (09:16)
[2023-10-31] MEDS ORDERED: cefTRIAXone SODIUM 1,000 MG/50 ML BAG IV SCH (10:45)
[2023-10-31 11:02] LABS: Basophils # (auto) 0.03 K/uL (0.00-0.20); Basophils % (auto) 0.4 %; Eosinophils # (auto) 0.19 K/uL (0.00-0.50); Eosinophils % (auto) 2.4 %; Immature Granulocytes # (auto) 0.06 K/uL (0.01-0.20); Immature Granulocytes % (auto) 0.8 %; Lymphocytes # (auto) 1.31 K/uL (1.20-3.40); Lymphocytes % (auto) 16.5 %; Monocytes % (auto) 15.1 %; Neutrophils # (auto) 5.16 K/uL (1.40-6.50); Neutrophils % (auto) 64.8 %
--- NOTE | 2023-10-31 12:01 | Billing Data ---
Date of Service October 31, 2023 Coding Level of Care Code 84131 SUB INP/OBS CARE
[2023-10-31] MEDS: cefTRIAXone SODIUM 2,000 MG/50 ML BAG IV SCH (12:09)
[2023-10-31] MEDS: POLYETHYLENE (MIRALAX) 17 GM PACK PO PRN (14:56)
--- NOTE | 2023-10-31 15:10 | Ultrasound Report ---
ULTRASOUND LEFT LOWER EXTREMITY VENOUS CLINICAL HISTORY: Left calf pain. COMPARISON STUDY: No priors. TECHNIQUE: Real-time, grayscale, and color Doppler sonography of the deep veins of the left lower ext remity was performed from the inguinal crease to the calf. Compression and augmentation were utilized . FINDINGS: There is occlusive deep venous thrombosis in the left common femoral vein. There is also oc clusive superficial venous thrombosis within the greater saphenous at the junction of the common femo ral vein. The superficial femoral and popliteal veins are patent and normally compressible. The profu nda femoris vein at the junction with the common femoral vein is clear. The visualized calf veins are patent. IMPRESSION: 1. There is occlusive deep venous thrombosis in the common femoral vein. 2. There is occlusive superficial venous thrombus within the greater saphenous vein at the junction w ith the common femoral vein. ACT 112: Negative or not required by law. Electronically signed by: Juancho Tam M.D. 10/31/2023 3:09 PM
[2023-10-31] MEDS: ACETAMINOPHEN 325 MG TAB PO PRN (16:20)
[2023-10-31] MEDS: bisacodyL 10 MG SUPP PR STA (17:32)
--- NOTE | 2023-10-31 20:08 | Billing Data ---
Date of Service October 31, 2023 Coding Level of Care Code 62909 INT INP/OBS CARE
[2023-10-31] MEDS: APIXABAN 5 MG TABLET PO SCH (21:02)
[2023-10-31] MEDS: POLYETHYLENE (MIRALAX) 17 GM PACK PO SCH (23:02)
[2023-11-01] MEDS: hydrOXYzine HCl 10 MG TAB PO ONE (00:34)
[2023-11-01] MEDS: MELATONIN 3 MG TAB PO PRN (00:34)
--- NOTE | 2023-11-01 06:39 | Hospitalist Progress Note ---
Date of Service November 01, 2023 Assessment & Plan (1) Urinary retention: Plan: 62-year-old female with past medical history of hyperlipidemia, insomnia, migraine, GERD, anxiety, recent abdominoplasty with abdominal binder admitted to the hospital for urinary retention. - Mckeon placed in the ED removing 2 L. UA was positive for nitrite. - Urine cx pending final report but neg - blood cx pending; no growth so far - Creatinine of 7.65 on admission, down to 4.39 yesterday, today 0.5; likely secondary to urinary retention - Abdominal/pelvis CT taken in the ED showed no nephrolithiasis, no bladder wall thickening, no significant perinephric abnormality. No pneumoperitoneum identified - urinary retention most likely secondary to urinary infection as pt is awhile out from her abdominal surg - continue CTX today - void trial attempted today but pt got significant abd and back discomfort, felt abd distention symptoms like what brought her in later in the trial and had not urinated, bladder scan 230, so mckeon replaced - urology consulted; pending recs (2) SAGAR (acute kidney injury): Plan: -Creatinine of 7.65, at time of discharge on 10/25 was 0.74, 4.39 yesterday, improved to 0.5 today -Strict I's and O's. -continue LR at 125 ml/hr. Admission and Anticipated Discharge Date Admission Date: October 31, 2023 Supervising Physician Co-Signing Physician Notes I personally examined the patient and verified all edouard points of history and exam, discussed case, and agree with decision making with Dr Ceballos Feeling good. Sister in the room, daughter (who is a hospitalist PA) was available for conversation over speaker phone at the same time. Updated patient and family of plans to the best my ability and to their satisfaction. No acute complaints today. Vitals noted, in general she is awake and alert pleasant no distress. HEENT normocephalic atraumatic mucous membranes moist. Breathing unlabored no accessory muscle use good effort. Skin without rashes pallor or icterus. Neuro without focal deficits. Urinary retention with acute renal failure due to obstructive uropathyrenal failure Has improved and given that the most likely root cause would be infectious, and we have now been on Rocephin, and she feels/looks good, gave trial of discontinuing Mckeon with the hopes that she would be able to void on her ownand if that was the case, hopefully be able to go home. Unfortunately as the day progressed, while she only had about 230 mL of urine per bladder scan, she was feeling very uncomfortable and very much unable to voidand Mckeon needed to be replaced. Given that she is female, it is certainly more odd from my perspective for her to be having urinary retention. Continue ceftriaxone on the supposition that it is a urinary tract infection. As noted yesterday, she does have a decent amount of constipation on her CT scan, but I would think this would lead more to urinary incontinence then retention; and I doubt any of her medications would really have been a culprit, with the only new medicine really being oxycodone. Because her retention persists, and given that she was very uncomfortable and had an obstructive uropathy as an outpatientobviously owe it to her to keep her in the hospital until the situation is better elucidated. Will ask urology for assistance given that the etiology for her retention is not entirely clear. DVTsituational given surgery and multiple hospitalizations in the last weekto be clear, CT from the beginning of the week did not show PE to radiology or pulmonologyso I do believe this is new. Eliquis; given that it seems to be clearly provoking, probably only need to treat to 3 months versus symptom resolution (whichever comes later) although we did discuss being proactive and somewhat aggressive with DVT prophylaxis in future potential thrombogenic situ ations (such as future surgeries, long travel, etc. Otherwise as above Subjective 62-year-old female with past medical history of hyperlipidemia, insomnia, migraine, GERD, anxiety, recent abdominoplasty with abdominal binder admitted to the hospital for urinary retention. Today, pt states that she feels well this morning. No major questions or complaints today. She notes her abdominal and calf soreness persist but are no worse than yesterday. Mckeon was removed for void trial and pt was reassessed in the evening and states she feels like her abdomen is becoming distended again and she is starting to get back pains similar to what she felt prior to coming in when she had severe urinary retention. She has not been able to pee all day and states she is just starting to feel miserable all over again. Review of Systems Review of Systems: Per HPI. Physical Exam Physical Exam: General:Alert and oriented, no acute distress but uncomfortable appearing HEENT: Normocephalic, moist oral mucosa, Cardio: Regular rate and rhythm, no murmur, Resp:Lungs clear to auscultation b/l, no wheezes or rhonchi, GI: Distended, abdominal binder in place, abdominal drains with mostly serosanguineous fluid Skin: Warm, pink, dry, Results & Data Results & Data Vital Signs (Past 12 Hours) Vital Signs Temp Pulse Resp BP Pulse Ox O2 Del Method 10/31/23 21:02 Room Air 10/31/23 19:19 36.6 C 77 18 112/71 94 Room Air Resident Activity Tracking Resident Involvement: Resident Care Provided Care Provided: Adult Hospital Medicine
[2023-11-01 08:02] LABS: Basophils # (auto) 0.03 K/uL (0.00-0.20); Basophils % (auto) 0.5 %; Eosinophils % (auto) 1.6 %; Hematocrit (blood only) 30.3 % (37.0-47.0); Hemoglobin 9.9 g/dl (12.0-16.0); Immature Granulocytes # (auto) 0.04 K/uL (0.01-0.20); Immature Granulocytes % (auto) 0.6 %; Lymphocytes # (auto) 1.59 K/uL (1.20-3.40); Lymphocytes % (auto) 25.2 %; Mean Corpuscular Hemoglobin 30.2 pg (25.0-34.0); Mean Corpuscular Hgb Conc 32.7 g/dL (32.0-36.0); Mean Corpuscular Volume 92.4 fL (80.0-100.0); Mean Platelet Volume 9.1 fL (9.4-12.4); Monocytes % (auto) 11.1 %; Neutrophils # (auto) 3.85 K/uL (1.40-6.50); Nucleated RBC # (auto) 0.02 K/uL (0.00-0.12); Nucleated RBC % (auto) 0.3 %; Platelet Count 136 K/uL (130-400); RDW Coefficient of Variation 15.2 % (11.5-14.5); RDW Standard Deviation 49.2 fL (36.4-46.3); Red Blood Count 3.28 M/uL (4.20-5.40); White Blood Count 6.31 K/ul (4.8-10.8)
[2023-11-01 08:47] LABS: BUN Creatinine Ratio 12.7 (10-20); Calcium 8.6 mg/dl (8.6-10.3); Creatinine Clr Calc Pharmacy 104.8 ml/min; Est GFR (African American) 116.5 ml/min; Est GFR (Non-African American) 100.5 ml/min; Potassium 4.3 mmol/L (3.5-5.1)
[2023-11-01] MEDS ORDERED: POLYETHYLENE (MIRALAX) 17 GM PACK PO SCH (09:00)
--- NOTE | 2023-11-01 18:25 | Billing Data ---
Date of Service November 01, 2023 Coding Level of Care Code 87338 SUB INP/OBS CARE MIN
--- NOTE | 2023-11-01 22:27 | Urology Consultation ---
Date of Consultation November 01, 2023 Assessment & Plan (1) Urinary retention: (2) SAGAR (acute kidney injury): (3) DVT (deep venous thrombosis): (4) Status post abdominoplasty: (5) Aspiration pneumonia of both lower lobes: Plan Patient presented with worsening issues with trouble voiding. Had undergone CT examination. Found to have some signs of possible pelviectasis with catheter appearing to be draining bladder well. Patient is postop day 9 from abdominoplasty at outlying facility. Developed significant respiratory issues post procedure found to have possible aspiration pneumonia. Patient had considerable issues with bowel function. Had also been having increasing trouble with voiding. Presented with increasing abdominal pain to the ER found to be in retention. Patient was admitted and underwent hydration and monitoring. Also found to have DVT in the left lower extremity found due to increasing swelling and pain in the lower extremity. The patient's vitals and labs were all reviewed. Pertinent values in the HPI and plan section. Patient white count 6.31. Creatinine 0.55. Hemoglobin 9.9. All other pertinent values in the HPI or plan section. All labs and vitals were reviewed. Imaging was reviewed interpreted by myself. Agree with read. Vitals were reviewed. Patient is currently nontachycardic. No significant hypotension. Temperature 36.6. Oxygen saturation 94% on room air. Discussed findings extensively with patient. Patient's complicated medical and surgical history was reviewed and summarized above. Patient's surgical, medical, social, and family history were all reviewed with pertinent values as above. Discussed patient's current diagnosis as well as concerns and issues. Reviewed different options moving forward. Discussed potential risks and benefits as well as possible options and concerns. Patient had failed attempt to remove catheter. Discussed extensively options moving forward. Discussed timing for bladder rest and to allow more normal function to return. Patient's bowels have just darted to get back into lower and will likely improve voiding issues over time. Extensive conversation about postoperative retention incomplete emptying and other issues. Discussed relation to constipation issues discussed concerns related to decreased mobility and acute illness. Patient has had multiple issues over the last week since the surgery. He is likely going to be on blood thinners due to acute DVT. Did discuss possibility blood in urine. Reviewed extensively options moving forward. Patient's imaging has been reviewed interpreted by myself CT examination is showing signs of possible pelviectasis possibly related to over distention of the bladder with back pressure. Did appear to be resolving and catheter has been in good position on that CT imaging. Discussed monitoring moving forward. Reviewed extensively options for outpatient workup after resolution of acute issues. Discussed different options moving forward for monitoring and further evaluation. Patient was agreeable for maintenance catheter for now. Can likely in the next 2 to 3 days attempt removal of catheter. Would recommend removal first thing in the morning. Would allow adequate time 4 to 6 hours to return to spontaneous voiding. Did discuss it may take additional attempts for additional time in order to allow resolution of some of the other issues to allow the bladder function to return to more normal. Discussed multifactorial issues that may be contributing. Patient is also noticed a significant amount of skin irritation and vaginal irritation which she is attributed to the skin prep. Did discuss possible issues that may be related to issues with voiding. Was having considerable burning and irritation in the genital region specifically the urethra. Can assess this further after resolution of other major issues. Will plan to monitor moving forward. Plan for outpatient follow-up for workup after acute urinary retention. History of Present Illness Attending Physician: Larry Mccabe DO History of Present Illness Consult for urinary issues with incomplete emptying and retention. Had attempted catheter removal and patient was unable to void. Patient had abdominoplasty at [facility] at the very end of September on the . Had issues with pneumonia after procedure. Developed issues with voiding and presented to the ER. Patient also found to have blood clot in lower extremity found working up pain and swelling. Patient has mild to moderate discomfort in pelvis and groin going to back and side in waves. Is dealing with acute illness and recovering from abdominal surgery. Also had significant issues with skin reaction and irritation after the procedure. Has been deconditioned from this. Has decreased mobility significantly with acute issues. Patient's bowel function has been off since the surgery. Only the last day or 2 this is started to improve. Patient has not had complete return to normal bowel function but has improved from considerable postoperative constipation. Has had some minor urinary issues in the past. Denies bleeding. No severe nausea or vomiting. Currently no fevers. Discussed with patient multifactorial nature of urinary issues, retention, and incomplete bladder emptying. Discussed concerns and issues. Discussed d ecreased mobility and trouble voiding. Discussed issues related to deconditioning and weakened state. Discussed possibility that patient had more moderate to severe issues and with the acute illness and deconditioning these issues became more prevalent and obvious. Discussed bowel function and possible issues related to decrease in function and its relation to other pelvic organs and systems. Discussed different medications, will use during hospitalization and their effect on ability to empty. Allergies Allergy/AdvReac Type Severity Reaction Status Date / Time No Known Allergies Allergy Unverified 10/25/23 01:02 Home Medications Medication Instructions Recorded Confirmed Type conj estrogen-medroxyprogesterone 1 tab PO DAILY 10/25/23 10/31/23 History 0.45 mg-1.5 mg tablet (Prempro) docusate sodium 100 mg capsule 100 mg PO HS PRN Constipation 10/25/23 10/31/23 History (Col-Rite) duloxetine 60 mg capsule,delayed 60 mg PO DAILY 10/25/23 10/31/23 History release meloxicam 7.5 mg tablet 7.5 mg PO .HOLD 10/25/23 10/31/23 History oxycodone-acetaminophen 5 mg-325 1 tab PO Q4 PRN Pain 10/25/23 10/31/23 History mg tablet pantoprazole 20 mg tablet,delayed 20 mg PO BID 10/25/23 10/31/23 History release propranolol 80 mg capsule,24 80 mg PO DAILY 10/25/23 10/31/23 History hr,extended release rizatriptan 10 mg disintegrating 10 mg PO DIRECTED PRN Migraine 10/25/23 10/31/23 History tablet Headache rosuvastatin 10 mg tablet 10 mg PO DAILY 10/25/23 10/31/23 History zolpidem 10 mg tablet 5 - 10 mg PO HS PRN Sleep 10/25/23 10/31/23 History albuterol sulfate 90 mcg/actuation 2 puff inhalation Q4H PRN 10/26/23 10/31/23 Rx aerosol inhaler (Ventolin HFA) shortness of breath or wheezing #6.7 grams apixaban 5 mg tablet (Eliquis) 5 mg PO BID 30 days #60 tabs 11/01/23 Rx Patient History Medical History Postmenopausal state Insomnia GERD (gastroesophageal reflux disease) Migraine headache Hyperlipidemia Anxiety and depression Social History Smoking Status: Never smoker Hx Alcohol Use: No Hx Substance Use: No Preferred Language: Faroese Communication Ability: Effective 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 HEENT: Normocephalic Atraumatic. Inspection normal. Cranial Nerves 2-12 Grossly intact. Nares are clear. Neck is supple. Normal inspection of face. Normal inspection of neck. Neurologic: No deficits on inspection. Baseline for motor function and sensory. Psychologic: Normal affect. Respiratory: Nonlabored. No use of accessory muscles. No tachypnea or dyspnea. Cardiovascular: No tachycardia Skin: [place] and Dry. No rashes or visible lesions. Extremities: Moving without issues. Swelling and discomfort of the left lower extremity. No motor deficits on inspection Lymphatics: Swelling of the left extremity likely secondary to DVT Abdomen: Soft Non-distended. No rebound or guarding. Abdominal wounds are covered but otherwise clean : Burleson catheter in place draining clear urine Results & Data Vital Signs (Past 12 Hours) Vital Signs Temp Pulse Resp BP Pulse Ox O2 Del Method 11/01/23 19:31 36.6 C 75 16 132/70 94 Room Air 11/01/23 14:08 36.7 C 80 16 142/72 H 92 Room Air PG Care Time/CCT Total # of Minutes Spent Total Time Spent with Patient: Total time spent is greater than 50% in coordination of care (as documented) at patient's floor/unit and/or counseling patient: Coding Level of Care Code 45293 IN/OBS CONSULT LVL 5,80M Diagnoses Urinary retention R33.9 SAGAR (acute kidney injury) N17.9 DVT (deep venous thrombosis) I82.409 Status post abdominoplasty Z98.890 Aspiration pneumonia of both lower lobes J69.0
[2023-11-02 05:55] LABS: Basophils # (auto) 0.05 K/uL (0.00-0.20); Basophils % (auto) 0.8 %; Eosinophils # (auto) 0.14 K/uL (0.00-0.50); Eosinophils % (auto) 2.2 %; Hemoglobin 9.5 g/dl (12.0-16.0); Immature Granulocytes # (auto) 0.08 K/uL (0.01-0.20); Immature Granulocytes % (auto) 1.3 %; Lymphocytes # (auto) 1.91 K/uL (1.20-3.40); Lymphocytes % (auto) 30.5 %; Mean Corpuscular Hemoglobin 30.3 pg (25.0-34.0); Mean Corpuscular Hgb Conc 32.8 g/dL (32.0-36.0); Mean Corpuscular Volume 92.4 fL (80.0-100.0); Mean Platelet Volume 8.9 fL (9.4-12.4); Monocytes # (auto) 0.61 K/uL (0.11-0.59); Monocytes % (auto) 9.7 %; Neutrophils # (auto) 3.47 K/uL (1.40-6.50); Neutrophils % (auto) 55.5 %; Nucleated RBC # (auto) 0.02 K/uL (0.00-0.12); Nucleated RBC % (auto) 0.3 %; Platelet Count 159 K/uL (130-400); RDW Coefficient of Variation 15.2 % (11.5-14.5); RDW Standard Deviation 49.5 fL (36.4-46.3); Red Blood Count 3.14 M/uL (4.20-5.40); White Blood Count 6.26 K/ul (4.8-10.8)
[2023-11-02 06:11] LABS: BUN Creatinine Ratio 8.3 (10-20); Calcium 8.5 mg/dl (8.6-10.3); Creatinine Clr Calc Pharmacy 120.1 ml/min; Est GFR (African American) 121.8 ml/min; Est GFR (Non-African American) 105.1 ml/min; Potassium 3.9 mmol/L (3.5-5.1)
--- NOTE | 2023-11-02 06:59 | Hospitalist Progress Note ---
Date of Service November 02, 2023 Assessment & Plan (1) Urinary retention: (2) SAGAR (acute kidney injury): Plan: (3) DVT (deep venous thrombosis): (4) Status post abdominoplasty: (5) Aspiration pneumonia of both lower lobes: Plan 62-year-old female with past medical history of hyperlipidemia, insomnia, migraine, GERD, anxiety, recent abdominoplasty with abdominal binder admitted to the hospital for urinary retention. 1) Urinary retention - Burleson placed in the ED removing 2 L. UA was positive for nitrite. - Urine Cx: negative; Blood Cx's: both negative after 48 hrs - Creatinine of 7.65 on admission, down to 4.39 yesterday, today 0.5; likely secondary to urinary retention - CT-AP: no nephrolithiasis, no bladder wall thickening, no significant perinephric abnormality, no pneumoperitoneum identified - urinary retention most likely secondary to urinary infection as pt is awhile out from her abdominal surg - continue CTX today - voiding trial attempted unsuccessfully yesterday but patient became symptomatic, bladder scan 230 mL urine, Burleson replaced - urology consulted --> recommending another voiding trial in 2-3 days to allow bladder to gain function 2) SAGAR #resolved - Creatinine of 7.65 at admission - creatinine, 0.48 <-- 0.55 <--4.39 <-- 7.65 - Strict I's and O's; LR at 125 ml/hr, discontinued 3) DVT - patient w/ left-sided calf pain --> Doppler US confirmed a DVT in common femoral vein and SVT in greater saphenous vein - patient started on Eliquis, 10 mg, PO, daily (for 1 week --> then transtion to 5 mg, PO, daily) - continue to monitor for pleuritic chest pain, tachycardia, tachypnea for potential migration as PE 4) Mild-moderate anemia - Hgb, 9.5 <-- 9.9 <-- 11.5 - patient w/out symptoms concerning for anemia --> no weakness, increased fatigue unaccounted for, dyspnea, tachycardia - AM CBC 5) Insomnia - chronic, Ambien, 2.5 mg, PO, QHS Code status: Full DVT prophylaxis/treatment: Eliquis Disposition: Med-Surg FENGI: regualr diet Admission and Anticipated Discharge Date Admission Date: October 31, 2023 Supervising Physician Co-Signing Physician Notes ATTESTATION I also saw the patient and confirmed edouard portions of the history and exam. I agree with the impression and plan in the resident documentation, and as summarized below. . Upon our early afternoon exam, the patient is seated in the bedside chair. She has no complaints. Urology is already seen the patient. EXAM 127/66, 73, 16, 36.6 Pleasant alert and oriented. No distress appreciated. Heart regular rate and rhythm. Lungs clear with nonlabored respirations Left calf with minimal tenderness; no edema appreciated. Burleson draining yellow urine DATA Labs HgB 9.5 BUN 4, Cr 0.48 Micro . Urine culture demonstrates no growth . Blood cultures no growth 48 hours IMPRESSION & PLAN Acute renal failure, post renal, resolved Failed voiding trial DVT Continue Eliquis, provoked VTE (her first), 3-6 months Check hemoglobin in the morning to assure stability Continue Burleson in anticipation of outpatient voiding trial Additional per resident documentation Subjective 62-year-old F w/ a PMHx of hyperlipidemia, insomnia, migraine, GERD, anxiety, recent abdominoplasty with abdominal binder admitted to the hospital for urinary retention. Today, pt states that she feels well this morning, though fatigued due to a poor night's sleep last night (did not take her PRN melatonin). Patient states she normally takes Ambien, 2.5 mg, QHS. Patient endorses continued abdominal and calf soreness persist but are no worse than yesterday. Burleson was removed for voiding trial yesterday unsuccessfully and the Burleson was replaced. Review of Systems Constitutional: + fatigue and + insomnia (could not slee p due to requirement to sleep on back s/p abdominoplasty); no fever, no chills and no weakness Respiratory: no cough and no dyspnea Cardiovascular: no chest pain and no palpitations Gastrointestinal: + abdominal pain; no belching, no bloati ng, no heartburn, no nausea, no vomiting, no constipation and no diarrhea/loose stools Neurologic: no tingling, no numbness and no headache(s) Physical Exam Constitutional: WD/WN, vitals as above Respiratory: normal respiratory effort, lungs clear to auscultation Cardiovascular: RRR, no murmur, no edema Extremities: + calf tenderness (left-sided) Gastrointestinal (Abdomen): Percussion/Palpation: + abdomen tender abdominal binder on post-abdominoplasty Psychiatric: A+Ox3, euthymic affect Genitourinary: normal external appearance; no CVA tenderness and no external tenderness Results & Data Results & Data Vital Signs (Past 12 Hours) Vital Signs Temp Pulse Resp BP Pulse Ox O2 Del Method 11/01/23 20:35 Room Air 11/01/23 19:31 36.6 C 75 16 132/70 94 Room Air Resident Activity Tracking Resident Involvement: Resident Care Provided Care Provided: Adult Hospital Medicine
--- NOTE | 2023-11-02 17:22 | Urology Progress Note ---
Date of Service November 02, 2023 Assessment & Plan (1) Urinary retention: Plan 62yo/F who is s/p recent abdominoplasty admitted with urinary retention, SAGAR, DVT. - Afebrile, hemodynamically stable. - Creatinine 0.48 today. - Urine culture negative. - Blood cultures prelim no growth. - Urinary retention currently managed with Burleson catheter. - Burleson draining appropriately - urine is clear yellow. - Would recommend maintaining catheter for at least 3-5 days to allow for bladder decompression/rest. - Can likely attempt removal of catheter in the next few days. Would recommend removal first thing in the morning. Would allow adequate time 4 to 6 hours to return to spontaneous voiding. - We can arrange outpatient follow-up with our service. - Urology will follow peripherally. Please call with any further questions/concerns. Admission and Anticipated Discharge Date Admission Date: October 31, 2023 Subjective Patient seen at bedside this AM Awake, sitting in bedside chair on arrival. No acute distress. Burleson draining clear yellow urine Review of Systems Constitutional: as per Subjective / HPI Genitourinary: as per Subjective / HPI Physical Exam Constitutional: no acute distress Respiratory: no respiratory distress and no labored breathing Neurologic: moves all extremities and awake Psychiatric: A+Ox3, euthymic affect Genitourinary: Burleson intact Results & Data Vital Signs (Past 12 Hours) Vital Signs Temp Pulse Resp BP Pulse Ox O2 Del Method 11/02/23 14:26 36.6 C 73 16 127/66 95 Room Air 11/02/23 07:45 Room Air 11/02/23 07:05 36.6 C 78 16 123/72 92 Room Air PG Care Time/CCT Total # of Minutes Spent Total Time Spent with Patient: Total time spent is greater than 50% in coordination of care (as documented) at patient's floor/unit and/or counseling patient: Coding Level of Care Code 20754 SUB INP/OBS CARE 2/35MIN Diagnoses Urinary retention R33.9
[2023-11-02] MEDS: ZOLPIDEM TARTRATE 5 MG TAB PO PRN (20:30)
[2023-11-02] MEDS: SIMETHICONE 80 MG CHEW PO PRN (21:07)
[2023-11-03 06:17] LABS: Basophils # (auto) 0.03 K/uL (0.00-0.20); Basophils % (auto) 0.5 %; Eosinophils # (auto) 0.18 K/uL (0.00-0.50); Eosinophils % (auto) 2.9 %; Hematocrit (blood only) 31.2 % (37.0-47.0); Hemoglobin 10.2 g/dl (12.0-16.0); Immature Granulocytes # (auto) 0.05 K/uL (0.01-0.20); Immature Granulocytes % (auto) 0.8 %; Lymphocytes # (auto) 1.94 K/uL (1.20-3.40); Lymphocytes % (auto) 30.7 %; Mean Corpuscular Hemoglobin 30.2 pg (25.0-34.0); Mean Corpuscular Hgb Conc 32.7 g/dL (32.0-36.0); Mean Corpuscular Volume 92.3 fL (80.0-100.0); Mean Platelet Volume 8.6 fL (9.4-12.4); Monocytes % (auto) 7.9 %; Neutrophils # (auto) 3.61 K/uL (1.40-6.50); Neutrophils % (auto) 57.2 %; Nucleated RBC # (auto) 0.02 K/uL (0.00-0.12); Nucleated RBC % (auto) 0.3 %; Platelet Count 181 K/uL (130-400); RDW Coefficient of Variation 14.9 % (11.5-14.5); RDW Standard Deviation 49.1 fL (36.4-46.3); Red Blood Count 3.38 M/uL (4.20-5.40); White Blood Count 6.31 K/ul (4.8-10.8)
[2023-11-03 06:38] LABS: BUN Creatinine Ratio 7.8 (10-20); Calcium 8.6 mg/dl (8.6-10.3); Est GFR (African American) 119.4 ml/min; Est GFR (Non-African American) 103.1 ml/min; Potassium 3.7 mmol/L (3.5-5.1)
--- NOTE | 2023-11-03 08:21 | Discharge Summary ---
Date of Service November 03, 2023 Admission HPI Per Admitting Provider The patient is a 62-year-old female with a past medical history including hyperlipidemia, insomnia, migraine headache, GERD, anxiety with depression and postmenopausal state. She underwent a tummy tuck surgery at [facility] on the morning of October 22, and was discharged to home on oral Percocet and a lidocaine pump infusion. Patient was then discharged on 10/26/2023 for pneumonia. Continued taking Keflex. Patient was having issues with urinary retention since discharge. She was also having incontinence. Majority of history obtained from sister as patient was sleeping at time of admission. Patient was having urinary incontinence with standing up. She also was having back pain. She was seen by her surgeon and on 10/29 and was instructed to go to the emergency room to have a scan. In the ED: Mckeon was placed and approximately 2 L were removed from the bladder. Majority of patient's symptoms resolved after removal of urine. Was resting comfortably at time of admission. Admission Exam Per Admitting Provider Constitutional: well-appearing, sleeping CV: regular rhythm, no murmur appreciated, extremities well-perfused, no LE edema Resp: CTABL, no wheezes/rales/rhonchi appreciated, no increased work of breathing MSK: no gross deformities appreciated Skin: warm, dry, no rash appreciated Principal Diagnosis Urinary retention, bladder distention Discharge Exam Constitutional WD/WN, vitals as above Respiratory normal respiratory effort, lungs clear to auscultation Cardiovascular RRR, no murmur, no edema Extremities: + calf tenderness (left-sided) Gastrointestinal (Abdomen) Percussion/Palpation: + abdomen tender Psychiatric A+Ox3, euthymic affect Genitourinary normal external appearance; no CVA tenderness and no external tenderness Discharge Data Allergies Allergy/AdvReac Type Severity Reaction Status Date / Time No Known Allergies Allergy Unverified 10/25/23 01:02 Consultations 10/31/23 01:10 ED Decision to Admit Stat 11/01/23 17:24 Consult Urology Routine Ordered Studies 10/30/23 23:01 CT abd pelvis wo con Stat 10/31/23 11:58 US venous duplex leg [US venous doppler LE LT] Stat Hospital Course (1) Urinary retention: (2) SAGAR (acute kidney injury): (3) DVT (deep venous thrombosis): (4) Status post abdominoplasty: (5) Aspiration pneumonia of both lower lobes: Plan 62-year-old female with past medical history of hyperlipidemia, insomnia, migraine, GERD, anxiety, recent abdominoplasty with abdominal binder admitted to the hospital for urinary retention. Patient not having any dyspnea, tachycardia, tachypnea the morning of discharge. 1) Urinary retention - Mckeon placed in the ED removing 2 L. UA was positive for nitrite. - Urine Cx: negative; Blood Cx's: both negative after 48 hrs - Creatinine of 7.65 on admission, down to 4.39 yesterday, today 0.5; likely secondary to urinary retention - CT-AP: no nephrolithiasis, no bladder wall thickening, no significant pe rinephric abnormality, no pneumoperitoneum identified - urinary retention most likely secondary to urinary infection as pt is awhile out from her abdominal surg - continue CTX today - voiding trial attempted unsuccessfully during inpatient stay, bladder scan 230 mL urine, Mckeon replaced - urology consulted --> recommending another voiding trial 1-3 days after discharge 2) S/P Abdominoplasty - Patient's abdomen with non-erythematous, non-edematous, non-tender scarring from recent cosmetic abdominoplasty - Patient counseled to continue her Keflex as prescribed to her post- abdominoplasty by the surgeon 2) SAGAR #resolved - Creatinine of 7.65 at admission - creatinine, 0.48 <-- 0.55 <--4.39 <-- 7.65 3) DVT - patient w/ left-sided calf pain --> Doppler US confirmed a DVT in common femoral vein and SVT in greater saphenous vein - patient started on Eliquis, 10 mg, PO, BID (for 1 week) then transtion to 5 mg, PO, BID on 11/05/23, for at least 3 months - continue to monitor for pleuritic chest pain, tachycardia, tachypnea for potential migration as PE 4) Mild-moderate anemia - Hgb, 10.2 <-- 9.5 <-- 9.9 <-- 11.5 - patient w/out symptoms concerning for anemia --> no weakness, increased fatigue unaccounted for, dyspnea, tachycardia 5) Insomnia - chronic, Ambien, 2.5 mg, PO, QHS Total Time Total Time Spent Total Time Spent (In Minutes): I spent a total of 35 minutes seeing the patient, reviewing data, placing orders, and documenting. Discharge Plan Discharge Items Patient Disposition: Home - Self-Care Reason For Visit: URINARY RETENTION Discharge Diagnosis: Acute urinary retention, DVT Activity: As commented below Activity Comment: Continue routine activity as tolerated Non-emergency contact: Primary Care Provider Call non-emergency contact if: you have any medication questions, your pain is worsening, your pain is unusual for you and your temperature is above 101 Follow-up/Referrals: Carito Meyers MD [Primary Care Provider] - 11/13/23 10:45 am [facility],Nurse [FAKE FOR SCHEDULES] - 11/05/23 11:40 am Diet: Regular Ambulatory Orders: Basic Metabolic Panel (Routine) Timeframe: [id number] Location: Determined by Patient Ordered By: Amira Roberts Attending Provider Instructions: You were admitted to the hospital for acute urinary retention (inability to pee.) We feel this may be due to a urinary tract infection (UTI) since your urine test on admission was suggestive of a possible infection. As we removed the mckeon catheter and you have been able to pee throughout today, we feel this has resolved. You were also noted this admission to have a deep vein thrombosis (DVT, also known as a blood clot) in your left leg. We feel this is most likely due to the fact that you had surgery very recently, which can increase someone's risk of getting a blood clot. As you have had no prior history of a blood clot, 3 months of a blood thinner for treatment for this is probably fine. You and your primary care provider may decide to extend or modify this course, but we feel 3 months should probably be sufficient. About the blood thinner: The blood thinner we started you on is called Eliquis and is taken twice daily. You will be on a dose of 10mg twice daily for the initial days after your blood clot (we will send for the remainder of this course including what you had in the hospital) and then you will be on 5mg twice daily for at least 3 months (we will send a separate script for this). This medication helps stabilize the clot and reduce your risk of any new clots forming. You should be careful taking NSAIDs (ibuprofen, meloxicam, naproxen, aspirin, etc) while you are on a blood thinner and ideally avoid them entirely and use Tylenol or topical pain medications for treatment of pain, as NSAIDs can cause GI bleeding that may be worse if you are on a blood thinner. To Do List: 1.) Continue your antibiotic 2.) Continue the Eliquis (blood thinner) by the regime below: -> for Eliquis, you will take 10 mg (2 of the 5mg tablets) twice daily until and including the day of 11/04 (this ) -> from 11/05 (this Thursday) onwards, take 5 mg (1 of the 5 mg tablets) twice daily for the remainder of the 3 months this will mean that the "30 day supply" you initially get when you first pick it up will finish sooner than 30 days and that is okay! 3.) Call your primary care doctor's office on Thursday (tomorrow) and let them know you have been in the hospital over the weekend and make an appointment with them by Thursday this week [employer] Provider Instructions: Please call the urology office at [phone] with any questions, concerns or need to reschedule appointments for any reason. We are happy to assist you. You are scheduled for a voiding trial in the urology clinic on 11/05/23 at 11:40AM. Mckeon Catheter care: Keep the catheter well secured with either a leg back or leg strap with large bag. Empty your bag when it's about half full. Use mild soap (such as Dove or Dial) and water to wash the catheter daily, or more frequently if needed. You may shower as normal. Please avoid tub baths or soaking until catheter removed Call [facility] at [phone] if you have any of the following: Heavy bleeding, clots, or bright red blood from the catheter Catheter that falls out or stops draining Pending Studies at Discharge: Yes Stand-Alone Forms: [facility] Medications and DC Order Prescriptions: New Eliquis 5 mg tablet 5 mg PO BID 30 Days Qty: 60 3RF Rx Instructions: Please take 10 mg (2 of the 5 mg tablets) twice daily until and including the day of 11/04, then from 11/05 onwards take 5 mg (1 of the 5 mg tablets) twice daily for the remainder of the 3 months Continued pantoprazole 20 mg tablet,delayed release (DR/EC) 20 mg PO BID meloxicam 7.5 mg tablet 7.5 mg PO .HOLD oxycodone-acetaminophen 5-325 mg tablet 1 tab PO Q4 PRN (Reason: Pain) rizatriptan 10 mg tablet,disintegrating 10 mg PO DIRECTED PRN (Reason: Migraine Headache) propranolol 80 mg capsule,extended release 24hr 80 mg PO DAILY docusate sodium [Col-Rite] 100 mg capsule 100 mg PO HS PRN (Reason: Constipation) zolpidem 10 mg tablet 5 - 10 mg PO HS PRN (Reason: Sleep) Prempro 0.45-1.5 mg Tablet 1 tab PO DAILY rosuvastatin 10 mg tablet 10 mg PO DAILY duloxetine 60 mg capsule,delayed release(DR/EC) 60 mg PO DAILY albuterol sulfate [Ventolin HFA] 90 mcg/actuation HFA aerosol inhaler 2 puff inhalation Q4H PRN (Reason: shortness of breath or wheezing) Qty: 6.7 0RF Discharge Orders: Discharge Order (Routine); Ordered 11/03/23 Ordered By: Hebert Mar Admission Data Admit Date/Time: 10/31/23 02:27 Attending Provider: Destin Lopez Admit Provider: Juancho Escamilla Primary Care Provider: Carito Meyers Other Providers: Yamini Hill; Giovanny Cardona; Tasneem Johnson Christopher T.; Vanita Pratt; Lawrence Hill; Shantelle Cox; Carmen Duke; Eran Vogel; Irena Lang; Kirk Francois; Sandi Moore; Aaron Hathaway; Larry Mccabe Other Interventions: Discharge Summary Assessment (RN) Last Done: 11/03/23 14:08 Supervising Physician Co-Signing Physician Notes ATTESTATION I also saw the patient and confirmed edouard portions of the history and exam. I agree with the impression and plan in the resident documentation, and as summarized below. This morning, she is feeling well. She has no new complaints. EXAM Vital signs as noted, afebrile Pleasant alert and oriented. No distress appreciated. Heart regular rate and rhythm. Lungs clear with nonlabored respirations Lower abdominal surgical incision is well-approximated, no erythema or tenderness Left calf with minimal tenderness; no edema appreciated. Mckeon draining yellow urine DATA Labs Hemoglobin up to 10.2 Micro . Urine culture demonstrates no growth . Blood cultures no growth 48 hours IMPRESSION & PLAN Acute renal failure, post renal, resolved Failed voiding trial DVT Continue Eliquis, provoked VTE (her first), 3-6 months Outpatient follow-up with urology for voiding trial She will resume her Keflex as prescribed by surgery and continue through Thursday; she has this medication already in her possession. Additional per resident documentation
--- NOTE | 2023-11-03 13:28 | Urology Progress Note ---
Date of Service November 03, 2023 Assessment & Plan (1) Urinary retention: Plan 62yo/F who is s/p recent abdominoplasty admitted with urinary retention, SAGAR, DVT. - Afebrile, hemodynamically stable. - SAGAR resolved - Creatinine 0.51 today. - Urine culture negative. - Blood cultures prelim no growth x 48hours. - Urinary retention currently managed with Burleson catheter. - Burleson draining appropriately - urine is clear yellow. - Would recommend maintaining catheter for at least 5 days to allow for bladder decompression/rest. - Will arrange outpatient follow-up and voiding trial with our service. - Urology will sign-off. Please call with any further questions/concerns. Admission and Anticipated Discharge Date Admission Date: October 31, 2023 Subjective Patient seen at bedside this AM Awake, resting in bed on arrival No acute distress. Burleson draining clear yellow urine Reports she is being discharged today Review of Systems Constitutional: as per Subjective / HPI Genitourinary: as per Subjective / HPI Physical Exam Constitutional: no acute distress Respiratory: no respiratory distress and no labored breathing Neurologic: moves all extremities and awake Psychiatric: A+Ox3, euthymic affect Genitourinary: Burleson intact Results & Data Vital Signs (Past 12 Hours) Vital Signs Temp Pulse Resp BP Pulse Ox O2 Del Method 11/03/23 07:18 37.0 C 76 16 148/85 H 96 Room Air PG Care Time/CCT Total # of Minutes Spent Total Time Spent with Patient: Total time spent is greater than 50% in coordination of care (as documented) at patient's floor/unit and/or counseling patient: Coding Level of Care Code 30988 SUB INP/OBS CARE 1/25MIN Diagnoses Urinary retention R33.9
--- NOTE | 2023-11-04 05:42 | Coding Query ---
CODING QUERY To promote full compliance with coding requirements relating to patient care, provider participation is requested in all cases of label coder uncertainty. Please assist us with the question(s) below: Coding Question(s): Pt admitted for urine retention / SAGAR. Status post abdominoplasty 10/22. CXR on admission possible aspiration pneumonitis or atelectasis. DS mentioned aspiration pneumonia. Please check below the phrase that describes the aspiration pneumonia. Thanks for your help! YONG Stout [facility] Physician's Response(s): __X Aspiration Pneumonia was not treated during this hospital stay Aspiration Pneumonia was diagnosed/treated during this hospital stay Other: Please document: Principal Diagnosis: "that condition established after study, to be chiefly responsible for occasioning the admission of the patient to the hospital for care." Co-Existing Principal Diagnosis: "when two or more diagnoses equally meet the criteria for principal diagnosis as determined by the circumstances of admission, diagnostic work up, and/or therapy provided, and the Alphabetic Index, Tabular List, or another coding guideline does not provide sequencing direction, any one of the diagnoses may be sequenced first." "When the physician has documented what appears to be a current diagnosis in the body of the record, but has not included the diagnosis in the final diagnostic statement, the physician should be asked whether the diagnosis should be added." (Source Coding Clinic 2 QTR90. p3-4) MADDIE
== END 2023-11-03 15:25 | disposition home or self-care (01) | DRG 683 ==
LOC: ED 21:14 → EDINP 10-31 02:27 → SUATTDRO 10-31 02:27 → 3E 10-31 03:01